=== PATIENT | female | born 1950 | race African-American/Black ===

== ENCOUNTER 2016-04-07 18:07 | Inpatient (IN) | payer OTHER ==
[~2016-04-07] VITALS: Ht 165.1 cm; Wt 49.9 kg
[2016-04-07] MEDS ORDERED: IV NORMAL SALINE 1000ML BAG 1,000 ML IV SCH (19:41)
[2016-04-07] MEDS ORDERED: methylPREDNISolone SOD SUCC PF 125 MG/2 ML VIAL. IV ONE (19:45)
[2016-04-07] MEDS ORDERED: IPRATRPIUM/ALBUTEROL 0.5/2.5MG 3 ML NEBU. NEB ONE (19:45)
[2016-04-07 20:24] LABS: BASO # 0.1 x10^3/uL (0.0-0.2); BASO % 1 % (0-3); EOS % 0 % (0-3); HEMOGLOBIN 14.9 g/dL (12.0-15.5); LYMPH # 0.8 x10^3/uL (1.0-4.8); LYMPH % 9 % (24-48); MEAN CORPUSCULAR HEMOGLOBIN 29 pg (25-35); MEAN CORPUSCULAR HGB CONC 33 g/dL (31-37); MEAN CORPUSCULAR VOLUME 89 fL (79-100); MONO % 6 % (0-9); NEUT % 85 % (31-73); PLATELET COUNT 212 x10^3/uL (140-400); RED BLOOD COUNT 5.07 x10^6/uL (3.50-5.40); RED CELL DISTRIBUTION WIDTH 13.6 % (11.5-14.5); WHITE BLOOD COUNT 9.8 x10^3/uL (4.0-11.0)
[2016-04-07 20:35] LABS: CALCIUM 9.8 mg/dL (8.5-10.1); CREATININE 0.7 mg/dL (0.6-1.0); GFR 101.6; POTASSIUM 3.6 mmol/L (3.5-5.1)
[2016-04-07 20:41] LABS: ALBUMIN 3.9 g/dL (3.4-5.0); ALBUMIN/GLOBULIN RATIO 0.8 (1.0-1.7); TOTAL BILIRUBIN 0.5 mg/dL (0.2-1.0); TOTAL PROTEIN 8.5 g/dL (6.4-8.2)
[2016-04-07 20:56] LABS: CKMB MASS < 0.5 ng/mL (0.0-3.6); CREATINE KINASE 55 U/L (26-192)
[2016-04-07 21:02] LABS: OBC FLU VALID
--- NOTE | 2016-04-07 21:08 | PHYS DOC ---
Past Medical History Past Medical History: Asthma, COPD, Hypertension Past Surgical History: No Surgical History Alcohol Use: Occasionally Drug Use: Marijuana Adult General Chief Complaint Chief Complaint: SHORTNESS OF BREATH HPI HPI Patient is a 65 year old female who presents with complaint of cough and shortness of breath. Patient symptoms have been getting worse over the past 2 days. Patient has history of COPD. Patient is not currently taking albuterol at home. Patient states that she has been having fever and chills and has had nonproductive cough. Patient also complains of body aches. Denies chest pain. Due to worsening dyspnea patient came to the emergency department for evaluation. Patient has history of COPD and hypertension. Review of Systems Review of Systems Constitutional: Fever [] Eyes: Denies change in visual acuity, redness, or eye pain [] HENT: Denies nasal congestion or sore throat [] Respiratory: Cough, shortness of breath [] Cardiovascular: Denies chest pain or edema [] GI: Denies abdominal pain, nausea, vomiting, bloody stools or diarrhea [] : Denies dysuria or hematuria [] Musculoskeletal: Denies back pain or joint pain [] Integument: Denies rash or skin lesions [] Neurologic: Denies headache, focal weakness or sensory changes [] Current Medications Current Medications Current Medications Medications (Trade) Dose Ordered Sig/Natalie Start Time Stop Time Status Last Admin Dose Admin Albuterol/ Ipratropium (Duoneb) 6 ml 1X ONCE 04/07/16 19:45 04/07/16 19:51 DC 04/07/16 20:09 6 ML Methylprednisolone Sodium Succinate (Solu-Medrol 125mg Vial) 100 mg 1X ONCE 04/07/16 19:45 04/07/16 19:51 DC 04/07/16 20:09 100 MG Sodium Chloride (Iv Sodium Chloride 0.9% 1000ml Bag) 1,000 ml @ 1,000 mls/hr Q1H 04/07/16 19:41 04/07/16 20:40 DC 04/07/16 20:09 1,000 MLS/HR Allergies Allergies Allergies Coded Allergies Type Severity Reaction Last Updated Verified Penicillins Allergy Intermediate hives 11/03/13 Yes diphenhydramine Allergy Intermediate hives 11/03/13 Yes Physical Exam Physical Exam Constitutional: Alert, febrile, appears in mild to moderate respiratory distress. [] HENT: Normocephalic, atraumatic, bilateral external ears normal, oropharynx moist, no oral exudates, nose normal. [] Eyes: PERRLA, EOMI, conjunctiva normal, no discharge. [] Neck: Normal range of motion, no tenderness, supple, no stridor. [] Cardiovascular: Tachycardia, regular rhythm, no murmur [] Lungs & Thorax: Accessory muscle usage present, prolonged expiratory phase, expiratory wheezes bilaterally, no rales [] Abdomen: Bowel sounds normal, soft, no tenderness, no masses, no pulsatile masses. [] Skin: Warm, dry, no erythema, no rash. [] Back: No tenderness, no CVA tenderness. [] Extremities: No tenderness, no cyanosis, no clubbing, ROM intact, no edema. [] Neurologic: Alert and oriented X 3, normal motor function, normal sensory function, no focal deficits noted. [] Current Patient Data Vital Signs Vital Signs Date Time Temp Pulse Resp B/P Pulse Ox O2 Delivery O2 Flow Rate FiO2 04/07/16 20:12 Room Air 04/07/16 20:09 91 04/07/16 18:56 86 20 155/100 2 04/07/16 18:07 100.1 100.1 Lab Values Laboratory Tests Test 04/07/16 20:06 04/07/16 20:12 Influenza Type A Antigen Negative (NEGATIVE) Influenza Type B Antigen Negative (NEGATIVE) White Blood Count 9.8x10^3/uL (4.0-11.0) Red Blood Count 5.07x10^6/uL (3.50-5.40) Hemoglobin 14.9g/dL (12.0-15.5) Hematocrit 45.0% (36.0-47.0) Mean Corpuscular Volume 89fL (79-100) Mean Corpuscular Hemoglobin 29pg (25-35) Mean Corpuscular Hemoglobin Concent 33g/dL (31-37) Red Cell Distribution Width 13.6% (11.5-14.5) Platelet Count 212x10^3/uL (140-400) Neutrophils (%) (Auto) 85% (31-73) H Lymphocytes (%) (Auto) 9% (24-48) L Monocytes (%) (Auto) 6% (0-9) Eosinophils (%) (Auto) 0% (0-3) Basophils (%) (Auto) 1% (0-3) Neutrophils # (Auto) 8.3x10^3uL (1.8-7.7) H Lymphocytes # (Auto) 0.8x10^3/uL (1.0-4.8) L Monocytes # (Auto) 0.6x10^3/uL (0.0-1.1) Eosinophils # (Auto) 0.0x10^3/uL (0.0-0.7) Basophils # (Auto) 0.1x10^3/uL (0.0-0.2) Sodium Level 138mmol/L (136-145) Potassium Level 3.6mmol/L (3.5-5.1) Chloride Level 99mmol/L (98-107) Carbon Dioxide Level 30mmol/L (21-32) Anion Gap 9 (6-14) Blood Urea Nitrogen 5mg/dL (7-20) L Creatinine 0.7mg/dL (0.6-1.0) Estimated GFR (Cockcroft-Gault) 101.6 BUN/Creatinine Ratio 7 (6-20) Glucose Level 111mg/dL (70-99) H Lactic Acid Level 1.2mmol/L (0.4-2.0) Calcium Level 9.8mg/dL (8.5-10.1) Total Bilirubin 0.5mg/dL (0.2-1.0) Aspartate Amino Transferase (AST) 17U/L (15-37) Alanine Aminotransferase (ALT) 17U/L (14-59) Alkaline Phosphatase 125U/L (46-116) H Creatine Kinase 55U/L (26-192) Creatine Kinase MB (Mass) < 0.5ng/mL (0.0-3.6) Creatine Kinase MB Relative Index % (0-4) Troponin I Quantitative < 0.017ng/mL (0.000-0.055) PJ-Omw-I-Type Natriuretic Peptide 205pg/mL (0-124) H Total Protein 8.5g/dL (6.4-8.2) H Albumin 3.9g/dL (3.4-5.0) Albumin/Globulin Ratio 0.8 (1.0-1.7) L Laboratory Tests 04/07/16 20:12 Laboratory Tests 04/07/16 20:12 EKG EKG Interpreted by me: Heart rate 95, sinus rhythm, normal intervals, normal axis, no acute ST/T-wave abnormalities present [] Radiology/Procedures Radiology/Procedures One view AP chest x-ray interpreted by me: Hyperinflated lung zepeda, no acute infiltrates or effusions, normal cardiac silhouette [] Course & Med Decision Making Course & Med Decision Making Pertinent Labs and Imaging studies reviewed. (See chart for details) Patient was given DuoNeb treatment and started on IV Solu-Medrol. Patient's resting oxygen saturation was 88% on room air and patient was started on oxygen per nasal cannula. Patient's flu test was negative and patient's chest x-ray does not show obvious signs of pneumonia at this time. Patient has fever which at this time is likely due to viral upper respiratory infection. The patient will need admission to the hospital for continued breathing treatments and IV steroids as patient continues to be in respiratory distress and hypoxic at rest. I spoke with Dr. Dubois who accepted care patient in hospital. Dragon Disclaimer Dragon Disclaimer This electronic medical record was generated, in whole or in part, using a voice recognition dictation system. Departure Departure Impression: Primary Impression: COPD with acute exacerbation Additional Impressions: Hypoxia Fever Disposition: ADMITTED INPATIENT Admitting Physician: Tala Dubois Condition: STABLE Referrals: MASON BHAKTA MD (PCP) Problem Qualifiers Additional Impressions: Fever Fever type: unspecified Qualified Code: R50.9 - Fever, unspecified JUDITH MONTANO MD Apr 07, 2016 21:08
[2016-04-08] VITALS (7 sets, daily range): BP systolic 105–157; BP diastolic 73–113
[2016-04-08] MEDS ORDERED: LEVOFLOXACIN PER PHARMACY MC PRN (00:15)
--- NOTE | 2016-04-08 00:53 | HP ---
ADMIT DATE: 04/07/2016 CHIEF COMPLAINT: Shortness of breath. HISTORY OF PRESENT ILLNESS: The patient is a pleasant middle-aged female who has known COPD. She presents with shortness of breath and weakness. I have discussed the case with the ER physician. It appears she has COPD exacerbation. She does continue to smoke. I am going to admit the patient and consult Pulmonary Medicine. PAST MEDICAL HISTORY: Continued tobacco abuse, COPD, asthma, hypertension, noncompliance, marijuana use. ALLERGIES: PENICILLIN, DIPHENHYDRAMINE. FAMILY HISTORY: Coronary artery disease. SOCIAL HISTORY: She smokes. No drinking or drugs. MEDICATIONS: Reviewed, please refer to [facility]. REVIEW OF SYSTEMS: GENERAL: No history of weight change, weakness or fevers. SKIN: No bruising, hair changes or rashes. EYES: No blurred, double or loss of vision. NOSE AND THROAT: No history of nosebleeds, hoarseness or sore throat. HEART: No history of palpitations, chest pain or shortness of breath on exertion. LUNGS: She complains of shortness of breath. GASTROINTESTINAL: Denies changes in appetite, nausea, vomiting, diarrhea or constipation. GENITOURINARY: No history of frequency, urgency, hesitancy or nocturia. NEUROLOGIC: Denies history of numbness, tingling, tremor or weakness. PSYCHIATRIC: No history of panic, anxiety or depression. ENDOCRINE: No history of heat or cold intolerance, polyuria or polydipsia. EXTREMITIES: Denies muscle weakness, joint pain, pain on walking or stiffness. PHYSICAL EXAMINATION: VITAL SIGNS: Stable. GENERAL: She is alert, cooperative. HEART: Normal S1, S2. LUNGS: Diminished with coarse crackles. ABDOMEN: Soft, positive bowel sounds. EXTREMITIES: No edema. SKIN: No rashes. PSYCHIATRIC: She is anxious. VASCULAR: Good capillary refill. ENDOCRINE: No thyromegaly. LYMPHATICS: No cervical nodes. HEMATOPOIETIC: No bruising. ASSESSMENT AND PLAN: Chronic obstructive pulmonary disease exacerbation. We will admit the patient, start on IV steroids, IV Rocephin, DuoNebs, oxygen, and consult Pulmonary Medicine. Continue home medicines, cardiac monitoring. SAV WHATLEY DO DR: GERTRUDE/yumiko JOB#: [id number] / [id number]
--- NOTE | 2016-04-08 00:58 | ACF ---
Admission Forms Criteria COPD Clinical Indications for Admission to Inpatient Care (Place 'X' for any and all applicable criteria): Admission is indicated for ANY ONE of the following (1)(2)(3): [X]I. Acute exacerbation by high-risk comorbidity (e.g., pneumonia, dysrhythmia, heart failure, pleural effusion, pneumothorax) or severe underlying COPD (e.g., steroid dependent) [X]II. Inpatient admission required rather than observation care (see Chronic Obstructive Pulmonary Disease: Observation Care) because of ANY ONE of the following: [ ]a) New or pre-existing signs or symptoms of COPD (eg, dyspnea or Tachypnea at rest or with minimal activity) that persist despite outpatient and observation care treatment [X]b) New-onset hypoxemia (room air SaO2 less than 90%, PO2 less than 60 mm Hg (8.0 kPa)) that persists despite outpatient and observation care treatment [ ]c) Worsening of pre-existing hypoxemia (eg, new or increased requirement for supplemental oxygen to maintain oxygenation at baseline level) that persists despite outpatient and observation care treatment, with oxygen treatment needs performable only in acute inpatient setting [ ]d) Hypercarbia (PCO2 greater than 40 mm Hg (5.3 kPa))-induced respiratory acidosis (pH less than 7.35) that persists despite outpatient and observation care treatment [ ]e) Supplemental oxygen or respiratory treatments for over 24 hours that are performable only in acute inpatient setting [ ]f) Chest tube placement with active evacuation (e.g., suction, drainage) (5) [ ]g) Other condition, treatment or monitoring requiring inpatient admission [ ]III. Planned invasive surgical or diagnostic procedures requiring acute- care hospitalization [ ]IV. Acute respiratory failure (e.g., uncompensated hypercarbia, severe hypoxemia) [ ]V. Severe comorbid condition (e.g., severe steroid myopathy, acute vertebral fracture) that has acutely worsened pulmonary function [ ]. Confusion state, lethargy, obtundation, stupor or coma Extended stay beyond goal length of stay may be needed for (31)(32): [ ]a ) Respiratory Failure. [ ]b) Severe or persisting hypoxemia or hypercarbia [ ]c) Severe or persistent dyspnea [ ]d) Comorbidities (e.g. chronic heart failure, atrial fibrillation with rapid response, pneumonia) [ ]e) Malnutrition The original [facility] content created by [facility] has been revised. The portions of the content which have been revised are identified through the use of italic text or in bold, and [facility] has neither reviewed nor approved the modified material. All other unmodified content is copyright [facility]. Please see references footnoted in the original [facility] edition 2016 Admission Criteria Met?: Yes RENNY SHANE Apr 08, 2016 00:58
[2016-04-08 02:05] LABS: BILIRUBIN,URINE NEGATIVE (NEG); GLUCOSE,URINE NEGATIVE (NEG); NITRITE,URINE NEGATIVE (NEG); PROTEIN,URINE NEGATIVE (NEG-TRACE)
[2016-04-08 02:12] LABS: BACTERIA,URINE 0 /HPF (0-FEW); RBC,URINE 0 /HPF (0-2); SQUAMOUS EPITHELIAL CELL,UR FEW /LPF; WBC,URINE OCC /HPF (0-4)
--- NOTE | 2016-04-08 06:41 | EKG ---
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
[2016-04-08] MEDS: IPRATRPIUM/ALBUTEROL 0.5/2.5MG 3 ML NEBU. NEB SCH ×3 (07:14→19:28)
--- NOTE | 2016-04-08 08:27 | RAD ---
Indication shortness of breath. History of COPD. A single view of the chest was obtained. Comparison is made to an examination 01/05/2015. Background changes compatible with emphysema and/or fibrosis are noted. Tortuous thoracic aorta is noted. A nipple shadow is noted at the left lung base similar to the previous exam. There is no consolidated pneumonia. Overall a significant change in the appearance of the chest compared to the prior study is not seen. IMPRESSION: Chronic changes. No acute finding or significant change
[2016-04-08] MEDS: methylPREDNISolone SOD SUCC PF 40 MG/ML VIAL. IV SCH ×3 (09:16→21:10)
[2016-04-08] MEDS ORDERED: hydrALAZINE 20 MG/ML VIAL. IVP PRN (09:30)
[2016-04-08] MEDS ORDERED: ONDANSETRON PF 4 MG/2 ML VIAL. IV PRN (09:30)
[2016-04-08] MEDS ORDERED: ALBUTEROL SULFATE 2.5 MG/3 ML NEBU. NEB PRN (09:30)
[2016-04-08] MEDS: ACETAMINOPHEN 325 MG TABLET. PO PRN ×2 (11:49→21:15)
[2016-04-08] MEDS: HYDROCODONE/APAP 5/325MG TABLET. PO PRN ×2 (11:50→21:14)
--- NOTE | 2016-04-08 15:26 | PDOC ---
Provider Note Provider Note dictated [facility] Abnormal CXR ct chest/echo EVERTON CUNNINGHAM MD Apr 08, 2016 15:26
--- NOTE | 2016-04-08 16:27 | RAD ---
Indication difficulty breathing. Assess for potential pulmonary fibrosis. Noncontrast imaging through the chest was performed. Note is made of a previous examination 11/03/2013. There is a lucency in the right lobe of the liver. This is likely incidental. It is similar to the previous exam. It is unchanged relative to a study 05/12/2011 and probably reflects a hemangioma. A definite acute or significant finding in the upper abdomen is not seen. The ascending thoracic aorta is at the upper limits of normal in size, 4 cm. Significant hilar or mediastinal adenopathy is not seen. There is some minimal scarring at the lung apices similar to the prior study. Underlying emphysematous changes are noted. An acute parenchymal infiltrate in either lung is not seen. There is no dominant soft tissue mass. IMPRESSION: Underlying emphysematous changes. No acute finding apparent in the chest PQRS Compliance Statement: One or more of the following individualized dose reduction techniques were utilized for this examination: 1. Automated exposure control 2. Adjustment of the mA and/or kV according to patient size 3. Use of iterative reconstruction technique
--- NOTE | 2016-04-08 16:33 | CONS ---
DATE OF CONSULTATION: ATTENDING PHYSICIAN: Tala Dubois D.O. REASON FOR CONSULTATION: Dyspnea. HISTORY OF PRESENT ILLNESS: This is a 65-year-old female who has been a smoker since her teenage years and still smokes cigarettes. She presented to the hospital with complaint of shortness of breath. The patient states she has a cough with yellow, green sputum production. No fever, no chills, no chest pains. The patient states she does not eat well and has not gained weight. No headaches. No nausea, vomiting or diarrhea. I have reviewed the patient's chest x-ray, there appears to be slightly prominent interstitial markings and there is a nipple shadow in the left lower lobe. I have been asked to see her for further evaluation. PAST MEDICAL HISTORY: Significant for COPD, continued tobaccoism, marijuana use, noncompliance, hypertension. ALLERGIES: PENICILLIN, DIPHENHYDRAMINE. FAMILY HISTORY: Coronary artery disease. SOCIAL HISTORY: Has been a smoker since teenage years. MEDICATIONS: Reviewed, as listed in the MRAD. REVIEW OF SYSTEMS: Twelve-point systems obtained, pertinent positives discussed in my history of present illness, otherwise noncontributory. All systems that were negative were reviewed as well. PHYSICAL EXAMINATION: VITAL SIGNS: T-max 100.8, blood pressure is 116/78, pulse ox 96% on 2 liters. NECK: Supple. LUNGS: With crackles at the bases. CARDIOVASCULAR: Regular rate and rhythm. ABDOMEN: Soft. EXTREMITIES: With no pitting edema. LABORATORY DATA: Influenza screen is negative. Labs are reviewed. White cell count 9.8 and platelets 212. IMPRESSION: 1. Dyspnea with acute hypoxic respiratory failure secondary to acute exacerbation of chronic obstructive pulmonary disease and possible viral pneumonitis. 2. Abnormal chest x-ray with slightly prominent interstitial markings. We will obtain noncontrast CT chest for further evaluation. We will also obtain echo to rule out any LV dysfunction. 3. Ongoing tobaccoism. RECOMMENDATIONS: 1. Continue present oxygen. 2. Bronchodilators. 3. Levaquin. 4. IV steroids. 5. CT chest without contrast. 6. Obtain echocardiogram. EVERTON CUNNINGHAM MD DR: AMIE/yumiko JOB#: [id number] / [id number]
--- NOTE | 2016-04-08 16:40 | PDOC ---
PROGRESS NOTES Chief Complaint Chief Complaint cc: sob COPD exacerbation Plan periodic nebulization ct Chest pending Levaquin iv solumedrol PT/OT pulmonology following History of Present Illness History of Present Illness no fever no chills. Vitals Vitals Vital Signs Date Time Temp Pulse Resp B/P Pulse Ox O2 Delivery O2 Flow Rate FiO2 04/08/16 15:13 Nasal Cannula 2.0 04/08/16 15:00 98.4 81 18 116/78 96 98.4 Physical Exam General: Alert, Oriented X3 Heart: Normal S1, Normal S2 Lungs: Wheezing, Other Abdomen: Normal bowel sounds Extremities: No clubbing, No cyanosis Labs LABS Laboratory Tests Test 04/07/16 20:06 04/07/16 20:12 04/08/16 01:55 Influenza Type A Antigen Negative (NEGATIVE) Influenza Type B Antigen Negative (NEGATIVE) White Blood Count 9.8x10^3/uL (4.0-11.0) Red Blood Count 5.07x10^6/uL (3.50-5.40) Hemoglobin 14.9g/dL (12.0-15.5) Hematocrit 45.0% (36.0-47.0) Mean Corpuscular Volume 89fL (79-100) Mean Corpuscular Hemoglobin 29pg (25-35) Mean Corpuscular Hemoglobin Concent 33g/dL (31-37) Red Cell Distribution Width 13.6% (11.5-14.5) Platelet Count 212x10^3/uL (140-400) Neutrophils (%) (Auto) 85% (31-73) Lymphocytes (%) (Auto) 9% (24-48) Monocytes (%) (Auto) 6% (0-9) Eosinophils (%) (Auto) 0% (0-3) Basophils (%) (Auto) 1% (0-3) Neutrophils # (Auto) 8.3x10^3uL (1.8-7.7) Lymphocytes # (Auto) 0.8x10^3/uL (1.0-4.8) Monocytes # (Auto) 0.6x10^3/uL (0.0-1.1) Eosinophils # (Auto) 0.0x10^3/uL (0.0-0.7) Basophils # (Auto) 0.1x10^3/uL (0.0-0.2) Sodium Level 138mmol/L (136-145) Potassium Level 3.6mmol/L (3.5-5.1) Chloride Level 99mmol/L (98-107) Carbon Dioxide Level 30mmol/L (21-32) Anion Gap 9 (6-14) Blood Urea Nitrogen 5mg/dL (7-20) Creatinine 0.7mg/dL (0.6-1.0) Estimated GFR (Cockcroft-Gault) 101.6 BUN/Creatinine Ratio 7 (6-20) Glucose Level 111mg/dL (70-99) Lactic Acid Level 1.2mmol/L (0.4-2.0) Calcium Level 9.8mg/dL (8.5-10.1) Total Bilirubin 0.5mg/dL (0.2-1.0) Aspartate Amino Transf (AST/SGOT) 17U/L (15-37) Alanine Aminotransferase (ALT/SGPT) 17U/L (14-59) Alkaline Phosphatase 125U/L (46-116) Creatine Kinase 55U/L (26-192) Creatine Kinase MB (Mass) < 0.5ng/mL (0.0-3.6) Creatine Kinase MB Relative Index % (0-4) Troponin I Quantitative < 0.017ng/mL (0.000-0.055) HJ-Wmf-N-Type Natriuretic Peptide 205pg/mL (0-124) Total Protein 8.5g/dL (6.4-8.2) Albumin 3.9g/dL (3.4-5.0) Albumin/Globulin Ratio 0.8 (1.0-1.7) Urine Collection Type Unknown Urine Color Yellow Urine Clarity Cloudy Urine pH 6.0 Urine Specific [place] 1.010 Urine Protein Negativemg/dL (NEG-TRACE) Urine Glucose (UA) Negativemg/dL (NEG) Urine Ketones (Stick) Negativemg/dL (NEG) Urine Blood Negative (NEG) Urine Nitrite Negative (NEG) Urine Bilirubin Negative (NEG) Urine Urobilinogen Dipstick 1.0mg/dL (0.2 mg/dL) Urine Leukocyte Esterase Negative (NEG) Urine RBC 0/HPF (0-2) Urine WBC Occ/HPF (0-4) Urine Squamous Epithelial Cells Few/LPF Urine Bacteria 0/HPF (0-FEW) Urine Mucus Mod/LPF Assessment and Plan Assessmemt and Plan Problems Medical Problems: (1) COPD with acute exacerbation Status: Acute (2) Fever Status: Acute (3) Hypoxia Status: Acute Problems: Comment Review of Relevant I have reviewed the following items lexi (where applicable) has been applied. Labs Laboratory Tests Test 04/07/16 20:06 04/07/16 20:12 04/08/16 01:55 Influenza Type A Antigen Negative (NEGATIVE) Influenza Type B Antigen Negative (NEGATIVE) White Blood Count 9.8x10^3/uL (4.0-11.0) Red Blood Count 5.07x10^6/uL (3.50-5.40) Hemoglobin 14.9g/dL (12.0-15.5) Hematocrit 45.0% (36.0-47.0) Mean Corpuscular Volume 89fL (79-100) Mean Corpuscular Hemoglobin 29pg (25-35) Mean Corpuscular Hemoglobin Concent 33g/dL (31-37) Red Cell Distribution Width 13.6% (11.5-14.5) Platelet Count 212x10^3/uL (140-400) Neutrophils (%) (Auto) 85% (31-73) Lymphocytes (%) (Auto) 9% (24-48) Monocytes (%) (Auto) 6% (0-9) Eosinophils (%) (Auto) 0% (0-3) Basophils (%) (Auto) 1% (0-3) Neutrophils # (Auto) 8.3x10^3uL (1.8-7.7) Lymphocytes # (Auto) 0.8x10^3/uL (1.0-4.8) Monocytes # (Auto) 0.6x10^3/uL (0.0-1.1) Eosinophils # (Auto) 0.0x10^3/uL (0.0-0.7) Basophils # (Auto) 0.1x10^3/uL (0.0-0.2) Sodium Level 138mmol/L (136-145) Potassium Level 3.6mmol/L (3.5-5.1) Chloride Level 99mmol/L (98-107) Carbon Dioxide Level 30mmol/L (21-32) Anion Gap 9 (6-14) Blood Urea Nitrogen 5mg/dL (7-20) Creatinine 0.7mg/dL (0.6-1.0) Estimated GFR (Cockcroft-Gault) 101.6 BUN/Creatinine Ratio 7 (6-20) Glucose Level 111mg/dL (70-99) Lactic Acid Level 1.2mmol/L (0.4-2.0) Calcium Level 9.8mg/dL (8.5-10.1) Total Bilirubin 0.5mg/dL (0.2-1.0) Aspartate Amino Transf (AST/SGOT) 17U/L (15-37) Alanine Aminotransferase (ALT/SGPT) 17U/L (14-59) Alkaline Phosphatase 125U/L (46-116) Creatine Kinase 55U/L (26-192) Creatine Kinase MB (Mass) < 0.5ng/mL (0.0-3.6) Creatine Kinase MB Relative Index % (0-4) Troponin I Quantitative < 0.017ng/mL (0.000-0.055) EQ-Qek-A-Type Natriuretic Peptide 205pg/mL (0-124) Total Protein 8.5g/dL (6.4-8.2) Albumin 3.9g/dL (3.4-5.0) Albumin/Globulin Ratio 0.8 (1.0-1.7) Urine Collection Type Unknown Urine Color Yellow Urine Clarity Cloudy Urine pH 6.0 Urine Specific [place] 1.010 Urine Protein Negativemg/dL (NEG-TRACE) Urine Glucose (UA) Negativemg/dL (NEG) Urine Ketones (Stick) Negativemg/dL (NEG) Urine Blood Negative (NEG) Urine Nitrite Negative (NEG) Urine Bilirubin Negative (NEG) Urine Urobilinogen Dipstick 1.0mg/dL (0.2 mg/dL) Urine Leukocyte Esterase Negative (NEG) Urine RBC 0/HPF (0-2) Urine WBC Occ/HPF (0-4) Urine Squamous Epithelial Cells Few/LPF Urine Bacteria 0/HPF (0-FEW) Urine Mucus Mod/LPF Laboratory Tests Test 04/07/16 20:06 04/07/16 20:12 04/08/16 01:55 Influenza Type A Antigen Negative (NEGATIVE) Influenza Type B Antigen Negative (NEGATIVE) White Blood Count 9.8x10^3/uL (4.0-11.0) Red Blood Count 5.07x10^6/uL (3.50-5.40) Hemoglobin 14.9g/dL (12.0-15.5) Hematocrit 45.0% (36.0-47.0) Mean Corpuscular Volume 89fL (79-100) Mean Corpuscular Hemoglobin 29pg (25-35) Mean Corpuscular Hemoglobin Concent 33g/dL (31-37) Red Cell Distribution Width 13.6% (11.5-14.5) Platelet Count 212x10^3/uL (140-400) Neutrophils (%) (Auto) 85% (31-73) Lymphocytes (%) (Auto) 9% (24-48) Monocytes (%) (Auto) 6% (0-9) Eosinophils (%) (Auto) 0% (0-3) Basophils (%) (Auto) 1% (0-3) Neutrophils # (Auto) 8.3x10^3uL (1.8-7.7) Lymphocytes # (Auto) 0.8x10^3/uL (1.0-4.8) Monocytes # (Auto) 0.6x10^3/uL (0.0-1.1) Eosinophils # (Auto) 0.0x10^3/uL (0.0-0.7) Basophils # (Auto) 0.1x10^3/uL (0.0-0.2) Sodium Level 138mmol/L (136-145) Potassium Level 3.6mmol/L (3.5-5.1) Chloride Level 99mmol/L (98-107) Carbon Dioxide Level 30mmol/L (21-32) Anion Gap 9 (6-14) Blood Urea Nitrogen 5mg/dL (7-20) Creatinine 0.7mg/dL (0.6-1.0) Estimated GFR (Cockcroft-Gault) 101.6 BUN/Creatinine Ratio 7 (6-20) Glucose Level 111mg/dL (70-99) Lactic Acid Level 1.2mmol/L (0.4-2.0) Calcium Level 9.8mg/dL (8.5-10.1) Total Bilirubin 0.5mg/dL (0.2-1.0) Aspartate Amino Transf (AST/SGOT) 17U/L (15-37) Alanine Aminotransferase (ALT/SGPT) 17U/L (14-59) Alkaline Phosphatase 125U/L (46-116) Creatine Kinase 55U/L (26-192) Creatine Kinase MB (Mass) < 0.5ng/mL (0.0-3.6) Creatine Kinase MB Relative Index % (0-4) Troponin I Quantitative < 0.017ng/mL (0.000-0.055) SP-Suc-L-Type Natriuretic Peptide 205pg/mL (0-124) Total Protein 8.5g/dL (6.4-8.2) Albumin 3.9g/dL (3.4-5.0) Albumin/Globulin Ratio 0.8 (1.0-1.7) Urine Collection Type Unknown Urine Color Yellow Urine Clarity Cloudy Urine pH 6.0 Urine Specific [place] 1.010 Urine Protein Negativemg/dL (NEG-TRACE) Urine Glucose (UA) Negativemg/dL (NEG) Urine Ketones (Stick) Negativemg/dL (NEG) Urine Blood Negative (NEG) Urine Nitrite Negative (NEG) Urine Bilirubin Negative (NEG) Urine Urobilinogen Dipstick 1.0mg/dL (0.2 mg/dL) Urine Leukocyte Esterase Negative (NEG) Urine RBC 0/HPF (0-2) Urine WBC Occ/HPF (0-4) Urine Squamous Epithelial Cells Few/LPF Urine Bacteria 0/HPF (0-FEW) Urine Mucus Mod/LPF Medications Current Medications Sodium Chloride (Iv Sodium Chloride 0.9% 1000ml Bag) 1,000 ml @ 1,000 mls/hr Q1H IV Last administered on 04/07/16 20:09; Start 04/07/16 at 19:41; Stop at 20:40; Status DC Albuterol/ Ipratropium (Duoneb) 6 ml 1X ONCE NEB Last administered on 20:09; Start 04/07/16 at 19:45; Stop 04/07/16 at 19:51; Status DC Methylprednisolone Sodium Succinate (Solu-Medrol 125mg Vial) 100 mg 1X ONCE IV Last administered on 04/07/16 20:09; Start 04/07/16 at 19:45; Stop 04/07/16 at 19:51; Status DC Levofloxacin/ Dextrose (Levaquin Per Pharmacy) 1 each PRN DAILY PRN MC SEE COMMENTS; Start 04/08/16 at 00:15 Albuterol/ Ipratropium (Duoneb) 3 ml RTQID NEB Last administered on 04/08/16 15 :13; Start 04/08/16 at 08:00 Methylprednisolone Sodium Succinate 30 mg 30 mg TID IV Last administered on 04/08 14:58; Start 04/08/16 at 09:00 Levofloxacin/ Dextrose 100 ml @ 100 mls/hr 1X ONCE IV Last administered on 04:25; Start 04/08/16 at 00:30; Stop 04/08/16 at 01:29; Status DC Levofloxacin/ Dextrose (LEVAQUIN 250mg PREMIX) 50 ml @ 50 mls/hr Q24H IV ; Start 04/08/16 at 22:00 Acetaminophen (Tylenol) 325 mg PRN Q6HRS PRN PO MILD PAIN / TEMP Last administered on 04/08/16 11:49; Start 04/08/16 at 09:30 Acetaminophen/ Hydrocodone Bitart (Lortab 5/325) 1 tab PRN Q6HRS PRN PO MODERATE TO SEVERE PAIN Last administered on 04/08/16 11:50; Start 04/08/16 at 09 :30 Hydralazine HCl (Apresoline) 10 mg PRN Q4HRS PRN IVP ELEVATED BP, SEE COMMENTS ; Start 04/08/16 at 09:30 Ondansetron HCl (Zofran) 4 mg PRN Q8HRS PRN IV NAUSEA/VOMITING; Start 04/08/16 at 09:30 Albuterol Sulfate (Ventolin Neb Soln) 2.5 mg PRN Q4HRS PRN NEB SHORTNESS OF BREATH; Start 04/08/16 at 09:30 Vitals/I & O Vital Sign - Last 24 Hours 04/07/16 04/07/16 04/07/16 04/07/16 18:07 18:26 18:56 19:12 Temp 100.1 100.1 Pulse 103 86 86 79 Resp 30 28 20 B/P 157/100 155/97 155/100 163/100 Pulse Ox 90 98 96 O2 Delivery Room Air Nasal Cannula Nasal Cannula O2 Flow Rate 2 2 2/08/1604/07/16 04/07/16 04/07/16 20:09 20:12 21:12 21:42 Pulse 106 82 Resp 20 31 B/P 169/103 161/93 Pulse Ox 91 93 99 O2 Delivery Room Air Room Air Nasal Cannula Nasal Cannula O2 Flow Rate 2 2 04/07/16 04/07/16 04/07/16 04/07/16 21:47 22:12 23:12 23:42 Pulse 94 84 76 80 Resp 24 20 20 20 B/P 142/92 143/92 158/96 146/95 Pulse Ox 98 94 94 94 O2 Delivery Nasal Cannula Nasal Cannula Nasal Cannula Nasal Cannula O2 Flow Rate 2 2 2 2 04/08/16 04/08/16 04/08/16 04/08/16 00:42 01:42 02:12 03:12 Pulse 88 110 88 86 Resp 18 18 18 18 B/P 138/91 137/96 137/83 157/94 Pulse Ox 94 94 94 94 O2 Delivery Nasal Cannula Nasal Cannula Nasal Cannula Nasal Cannula O2 Flow Rate 2 2 2 2 04/08/16 04/08/16 04/08/16 04/08/16 04:05 04:55 07:00 07:10 Temp 99.7 100.0 99.7 100.0 Pulse 100 92 Resp 22 20 B/P 157/113 134/83 Pulse Ox 92 100 98 O2 Delivery Nasal Cannula Nasal Cannula Nasal Cannula Room Air O2 Flow Rate 2.0 2.0 2.0 04/08/16 04/08/16 04/08/16 04/08/16 07:11 07:30 09:05 11:00 Pulse Ox 93 O2 Delivery Nasal Cannula Nasal Cannula Nasal Cannula O2 Flow Rate 2.0 2.0 2.0 2.0 04/08/16 04/08/16 04/08/16 04/08/16 11:00 11:35 11:50 13:00 Temp 99.8 100.8 99.8 100.8 Pulse 89 101 Resp 18 28 B/P 129/79 127/84 Pulse Ox 99 86 O2 Delivery Nasal Cannula Nasal Cannula Nasal Cannula Nasal Cannula O2 Flow Rate 2.0 2.0 2.0 2.0 04/08/16 04/08/16 04/08/16 13:40 15:00 15:13 Temp 98.4 98.4 Pulse 81 Resp 18 B/P 116/78 Pulse Ox 98 96 O2 Delivery Nasal Cannula Nasal Cannula O2 Flow Rate 2.0 2.0 2.0 Intake and Output 04/07/16 04/07/16 04/08/16 15:00 23:00 07:00 Intake Total 1100 ml Balance 1100 ml DONA KING MD Apr 08, 2016 16:40
--- NOTE | 2016-04-08 19:00 | CARD ---
APPROVED REPORT EXAM: Two-dimensional and M-mode echocardiogram with Doppler and color Doppler. INDICATION COPD 2D DIMENSIONS RVDd2.3 (2.9-3.5cm)Left Atrium(2D)2.0 (1.6-4.0cm) IVSd0.8 (0.7-1.1cm)Aortic Root(2D)3.0 (2.0-3.7cm) LVDd3.5 (3.9-5.9cm)LVOT Diameter2.0 (1.8-2.4cm) PWd0.9 (0.7-1.1cm)LVDs2.1 (2.5-4.0cm) FS (%) 39.2 %SV36.0 ml LVEF(%)70.0 (>50%) Aortic Valve AoV Peak Blayne.182.8cm/sAoV VTI30.1cm AO Peak GR.13.4mmHgLVOT Peak Blayne.143.9cm/s AO Mean GR.7mmHgAVA (VMAX)2.45cm2 Mitral Valve MV E Mxsrqoyq69.3cm/sMV E Peak Gr.2mmHg MV DECEL [id number] A Qvxpupss15.3cm/s MV E Mean Gr.1mmHgE/A Ratio0.8 MV A [id number] Pulmonary Valve PV Peak Olksmura555.5cm/s Tricuspid Valve TR P. [id number] [id number] TR Peak Gr.[id number] Pulmonary Vein S1 Anbtcpsy80.1cm/sD2 Yhpoepdt64.0cm/s PVa [id number] LEFT VENTRICLE The left ventricle is normal size. There is normal left ventricular wall thickness. The left ventricu lar systolic function is normal and the ejection fraction is within normal range. The Ejection Fracti on is 70%. There is normal LV segmental wall motion. Transmitral Doppler flow pattern is Grade I-abno rmal relaxation pattern. RIGHT VENTRICLE The right ventricle is mildly dilated There is normal right ventricular wall thickness. The right tigist tricular systolic function is normal. ATRIA The left atrium size is normal. The right atrium size is normal. The interatrial septum is intact wit h no evidence for an atrial septal defect or patent foramen ovale as noted on 2-D or Doppler imaging. AORTIC VALVE The aortic valve is normal in structure and function. Doppler and Color Flow revealed no significant aortic regurgitation. There is no significant aortic valvular stenosis. MITRAL VALVE The mitral valve is normal in structure and function. There is no evidence of mitral valve prolapse. There is no mitral valve stenosis. Doppler and Color Flow revealed no mitral valve regurgitation note d. TRICUSPID VALVE Doppler and Color Flow revealed mild tricuspid regurgitation. The pulmonary artery systolic pressure is estimated at 31 mmHg. PULMONIC VALVE The pulmonary valve is normal in structure and function. Doppler and Color Flow revealed no pulmonic valvular regurgitation. GREAT VESSELS The aortic root is normal in size. The ascending aorta is normal in size. The pulmonary artery is nor mal. The IVC is normal in size and collapses >50% with inspiration. PERICARDIAL EFFUSION There is no evidence of significant pericardial effusion. Critical Notification Critical Value: No <Conclusion> The left ventricular systolic function is normal and the ejection fraction is within normal range. The Ejection Fraction is 70%. Transmitral Doppler flow pattern is Grade I-abnormal relaxation pattern. The right ventricle is mildly dilated The left atrium size is normal. The right atrium size is normal. The aortic valve is normal in structure and function. The mitral valve is normal in structure and function. Doppler and Color Flow revealed mild tricuspid regurgitation. The pulmonary artery systolic pressure is estimated at 31 mmHg. The pulmonary valve is normal in structure and function. There is no evidence of significant pericardial effusion.
[2016-04-09 03:00] VITALS: BP 108/73
[2016-04-09 05:35] LABS: BASO % 0 % (0-3); EOS % 0 % (0-3); HEMATOCRIT 37.1 % (36.0-47.0); HEMOGLOBIN 12.3 g/dL (12.0-15.5); LYMPH # 0.6 x10^3/uL (1.0-4.8); LYMPH % 5 % (24-48); MEAN CORPUSCULAR HEMOGLOBIN 29 pg (25-35); MEAN CORPUSCULAR HGB CONC 33 g/dL (31-37); MEAN CORPUSCULAR VOLUME 89 fL (79-100); MONO % 2 % (0-9); NEUT % 93 % (31-73); PLATELET COUNT 180 x10^3/uL (140-400); RED BLOOD COUNT 4.18 x10^6/uL (3.50-5.40); RED CELL DISTRIBUTION WIDTH 13.6 % (11.5-14.5); WHITE BLOOD COUNT 12.5 x10^3/uL (4.0-11.0)
[2016-04-09 05:55] LABS: CALCIUM 9.2 mg/dL (8.5-10.1); CREATININE 0.7 mg/dL (0.6-1.0); GFR 101.6; POTASSIUM 3.4 mmol/L (3.5-5.1)
[2016-04-09 07:00] VITALS: BP 107/70
[2016-04-09] MEDS: IPRATRPIUM/ALBUTEROL 0.5/2.5MG 3 ML NEBU. NEB SCH ×4 (07:28→20:25)
[2016-04-09 07:56] LABS: PLT ESTIMATE ADEQUATE (ADEQUATE); TARGET CELLS PRESENT
[2016-04-09] MEDS: methylPREDNISolone SOD SUCC PF 40 MG/ML VIAL. IV SCH ×3 (08:26→21:23)
[2016-04-09 10:49] VITALS: BP 115/75
--- NOTE | 2016-04-09 10:55 | PDOC ---
PROGRESS NOTES Chief Complaint Chief Complaint cc: sob COPD exacerbation Dizziness and Ear pain rigth Plan periodic nebulization Meclizine PT Echo LVEF 70% ct Chest pending Levaquin iv solumedrol pulmonology following History of Present Illness History of Present Illness no fever no chills. Vitals Vitals Vital Signs Date Time Temp Pulse Resp B/P Pulse Ox O2 Delivery O2 Flow Rate FiO2 04/09/16 10:49 97.9 83 18 115/75 93 Nasal Cannula 1.0 97.9 Physical Exam General: Alert, Oriented X3 Heart: Normal S1, Normal S2 Lungs: Wheezing, Other Abdomen: Normal bowel sounds Extremities: No clubbing, No cyanosis Labs LABS Laboratory Tests Test 04/09/16 04:55 White Blood Count 12.5x10^3/uL (4.0-11.0) Red Blood Count 4.18x10^6/uL (3.50-5.40) Hemoglobin 12.3g/dL (12.0-15.5) Hematocrit 37.1% (36.0-47.0) Mean Corpuscular Volume 89fL (79-100) Mean Corpuscular Hemoglobin 29pg (25-35) Mean Corpuscular Hemoglobin Concent 33g/dL (31-37) Red Cell Distribution Width 13.6% (11.5-14.5) Platelet Count 180x10^3/uL (140-400) Neutrophils (%) (Auto) 93% (31-73) Lymphocytes (%) (Auto) 5% (24-48) Monocytes (%) (Auto) 2% (0-9) Eosinophils (%) (Auto) 0% (0-3) Basophils (%) (Auto) 0% (0-3) Neutrophils # (Auto) 11.6x10^3uL (1.8-7.7) Lymphocytes # (Auto) 0.6x10^3/uL (1.0-4.8) Monocytes # (Auto) 0.3x10^3/uL (0.0-1.1) Eosinophils # (Auto) 0.0x10^3/uL (0.0-0.7) Basophils # (Auto) 0.0x10^3/uL (0.0-0.2) Segmented Neutrophils % 88% (35-66) Band Neutrophils % 5% (0-9) Lymphocytes % 5% (24-48) Atypical Lymphocytes % (Manual) 1% (0-0) Monocytes % 1% (0-10) Platelet Estimate Adequate (ADEQUATE) Target Cells Present Sodium Level 137mmol/L (136-145) Potassium Level 3.4mmol/L (3.5-5.1) Chloride Level 101mmol/L (98-107) Carbon Dioxide Level 33mmol/L (21-32) Anion Gap 3 (6-14) Blood Urea Nitrogen 14mg/dL (7-20) Creatinine 0.7mg/dL (0.6-1.0) Estimated GFR (Cockcroft-Gault) 101.6 Glucose Level 253mg/dL (70-99) Calcium Level 9.2mg/dL (8.5-10.1) Assessment and Plan Assessmemt and Plan Problems Medical Problems: (1) COPD with acute exacerbation Status: Acute (2) Fever Status: Acute (3) Hypoxia Status: Acute Problems: Comment Review of Relevant I have reviewed the following items lexi (where applicable) has been applied. Labs Laboratory Tests Test 04/07/16 20:06 04/07/16 20:12 04/08/16 01:55 04/09/16 04:55 Influenza Type A Antigen Negative (NEGATIVE) Influenza Type B Antigen Negative (NEGATIVE) White Blood Count 9.8x10^3/uL (4.0-11.0) 12.5x10^3/uL (4.0-11.0) Red Blood Count 5.07x10^6/uL (3.50-5.40) 4.18x10^6/uL (3.50-5.40) Hemoglobin 14.9g/dL (12.0-15.5) 12.3g/dL (12.0-15.5) Hematocrit 45.0% (36.0-47.0) 37.1% (36.0-47.0) Mean Corpuscular Volume 89fL (79-100) 89fL (79-100) Mean Corpuscular Hemoglobin 29pg (25-35) 29pg (25-35) Mean Corpuscular Hemoglobin Concent 33g/dL (31-37) 33g/dL (31-37) Red Cell Distribution Width 13.6% (11.5-14.5) 13.6% (11.5-14.5) Platelet Count 212x10^3/uL (140-400) 180x10^3/uL (140-400) Neutrophils (%) (Auto) 85% (31-73) 93% (31-73) Lymphocytes (%) (Auto) 9% (24-48) 5% (24-48) Monocytes (%) (Auto) 6% (0-9) 2% (0-9) Eosinophils (%) (Auto) 0% (0-3) 0% (0-3) Basophils (%) (Auto) 1% (0-3) 0% (0-3) Neutrophils # (Auto) 8.3x10^3uL (1.8-7.7) 11.6x10^3uL (1.8-7.7) Lymphocytes # (Auto) 0.8x10^3/uL (1.0-4.8) 0.6x10^3/uL (1.0-4.8) Monocytes # (Auto) 0.6x10^3/uL (0.0-1.1) 0.3x10^3/uL (0.0-1.1) Eosinophils # (Auto) 0.0x10^3/uL (0.0-0.7) 0.0x10^3/uL (0.0-0.7) Basophils # (Auto) 0.1x10^3/uL (0.0-0.2) 0.0x10^3/uL (0.0-0.2) Sodium Level 138mmol/L (136-145) 137mmol/L (136-145) Potassium Level 3.6mmol/L (3.5-5.1) 3.4mmol/L (3.5-5.1) Chloride Level 99mmol/L (98-107) 101mmol/L (98-107) Carbon Dioxide Level 30mmol/L (21-32) 33mmol/L (21-32) Anion Gap 9 (6-14) 3 (6-14) Blood Urea Nitrogen 5mg/dL (7-20) 14mg/dL (7-20) Creatinine 0.7mg/dL (0.6-1.0) 0.7mg/dL (0.6-1.0) Estimated GFR (Cockcroft-Gault) 101.6 101.6 BUN/Creatinine Ratio 7 (6-20) Glucose Level 111mg/dL (70-99) 253mg/dL (70-99) Lactic Acid Level 1.2mmol/L (0.4-2.0) Calcium Level 9.8mg/dL (8.5-10.1) 9.2mg/dL (8.5-10.1) Total Bilirubin 0.5mg/dL (0.2-1.0) Aspartate Amino Transf (AST/SGOT) 17U/L (15-37) Alanine Aminotransferase (ALT/SGPT) 17U/L (14-59) Alkaline Phosphatase 125U/L (46-116) Creatine Kinase 55U/L (26-192) Creatine Kinase MB (Mass) < 0.5ng/mL (0.0-3.6) Creatine Kinase MB Relative Index % (0-4) Troponin I Quantitative < 0.017ng/mL (0.000-0.055) PH-Xap-H-Type Natriuretic Peptide 205pg/mL (0-124) Total Protein 8.5g/dL (6.4-8.2) Albumin 3.9g/dL (3.4-5.0) Albumin/Globulin Ratio 0.8 (1.0-1.7) Urine Collection Type Unknown Urine Color Yellow Urine Clarity Cloudy Urine pH 6.0 Urine Specific [place] 1.010 Urine Protein Negativemg/dL (NEG-TRACE) Urine Glucose (UA) Negativemg/dL (NEG) Urine Ketones (Stick) Negativemg/dL (NEG) Urine Blood Negative (NEG) Urine Nitrite Negative (NEG) Urine Bilirubin Negative (NEG) Urine Urobilinogen Dipstick 1.0mg/dL (0.2 mg/dL) Urine Leukocyte Esterase Negative (NEG) Urine RBC 0/HPF (0-2) Urine WBC Occ/HPF (0-4) Urine Squamous Epithelial Cells Few/LPF Urine Bacteria 0/HPF (0-FEW) Urine Mucus Mod/LPF Segmented Neutrophils % 88% (35-66) Band Neutrophils % 5% (0-9) Lymphocytes % 5% (24-48) Atypical Lymphocytes % (Manual) 1% (0-0) Monocytes % 1% (0-10) Platelet Estimate Adequate (ADEQUATE) Target Cells Present Laboratory Tests Test 04/09/16 04:55 White Blood Count 12.5x10^3/uL (4.0-11.0) Red Blood Count 4.18x10^6/uL (3.50-5.40) Hemoglobin 12.3g/dL (12.0-15.5) Hematocrit 37.1% (36.0-47.0) Mean Corpuscular Volume 89fL (79-100) Mean Corpuscular Hemoglobin 29pg (25-35) Mean Corpuscular Hemoglobin Concent 33g/dL (31-37) Red Cell Distribution Width 13.6% (11.5-14.5) Platelet Count 180x10^3/uL (140-400) Neutrophils (%) (Auto) 93% (31-73) Lymphocytes (%) (Auto) 5% (24-48) Monocytes (%) (Auto) 2% (0-9) Eosinophils (%) (Auto) 0% (0-3) Basophils (%) (Auto) 0% (0-3) Neutrophils # (Auto) 11.6x10^3uL (1.8-7.7) Lymphocytes # (Auto) 0.6x10^3/uL (1.0-4.8) Monocytes # (Auto) 0.3x10^3/uL (0.0-1.1) Eosinophils # (Auto) 0.0x10^3/uL (0.0-0.7) Basophils # (Auto) 0.0x10^3/uL (0.0-0.2) Segmented Neutrophils % 88% (35-66) Band Neutrophils % 5% (0-9) Lymphocytes % 5% (24-48) Atypical Lymphocytes % (Manual) 1% (0-0) Monocytes % 1% (0-10) Platelet Estimate Adequate (ADEQUATE) Target Cells Present Sodium Level 137mmol/L (136-145) Potassium Level 3.4mmol/L (3.5-5.1) Chloride Level 101mmol/L (98-107) Carbon Dioxide Level 33mmol/L (21-32) Anion Gap 3 (6-14) Blood Urea Nitrogen 14mg/dL (7-20) Creatinine 0.7mg/dL (0.6-1.0) Estimated GFR (Cockcroft-Gault) 101.6 Glucose Level 253mg/dL (70-99) Calcium Level 9.2mg/dL (8.5-10.1) Microbiology 04/08/16 Blood Culture - Preliminary, Resulted NO GROWTH AFTER 1 DAY Medications Current Medications Sodium Chloride (Iv Sodium Chloride 0.9% 1000ml Bag) 1,000 ml @ 1,000 mls/hr Q1H IV Last administered on 04/07/16 20:09; Start 04/07/16 at 19:41; Stop at 20:40; Status DC Albuterol/ Ipratropium (Duoneb) 6 ml 1X ONCE NEB Last administered on 20:09; Start 04/07/16 at 19:45; Stop 04/07/16 at 19:51; Status DC Methylprednisolone Sodium Succinate (Solu-Medrol 125mg Vial) 100 mg 1X ONCE IV Last administered on 04/07/16 20:09; Start 04/07/16 at 19:45; Stop 04/07/16 at 19:51; Status DC Levofloxacin/ Dextrose (Levaquin Per Pharmacy) 1 each PRN DAILY PRN MC SEE COMMENTS; Start 04/08/16 at 00:15 Albuterol/ Ipratropium (Duoneb) 3 ml RTQID NEB Last administered on 04/09/16 07 :28; Start 04/08/16 at 08:00 Methylprednisolone Sodium Succinate 30 mg 30 mg TID IV Last administered on 04/09 08:26; Start 04/08/16 at 09:00 Levofloxacin/ Dextrose 100 ml @ 100 mls/hr 1X ONCE IV Last administered on 04:25; Start 04/08/16 at 00:30; Stop 04/08/16 at 01:29; Status DC Levofloxacin/ Dextrose (LEVAQUIN 250mg PREMIX) 50 ml @ 50 mls/hr Q24H IV Last administered on 04/08/16 21:10; Start 04/08/16 at 22:00 Acetaminophen (Tylenol) 325 mg PRN Q6HRS PRN PO MILD PAIN / TEMP Last administered on 04/08/16 21:15; Start 04/08/16 at 09:30 Acetaminophen/ Hydrocodone Bitart (Lortab 5/325) 1 tab PRN Q6HRS PRN PO MODERATE TO SEVERE PAIN Last administered on 04/08/16t 21:14; Start 04/08/16 at 09 :30 Hydralazine HCl (Apresoline) 10 mg PRN Q4HRS PRN IVP ELEVATED BP, SEE COMMENTS ; Start 04/08/16 at 09:30 Ondansetron HCl (Zofran) 4 mg PRN Q8HRS PRN IV NAUSEA/VOMITING; Start 04/08/16 at 09:30 Albuterol Sulfate (Ventolin Neb Soln) 2.5 mg PRN Q4HRS PRN NEB SHORTNESS OF BREATH; Start 04/08/16 at 09:30 Vitals/I & O Vital Sign - Last 24 Hours 04/08/16 04/08/16 04/08/16 04/08/16 11:00 11:00 11:35 11:50 Temp 99.8 100.8 99.8 100.8 Pulse 89 101 Resp 18 28 B/P 129/79 127/84 Pulse Ox 93 99 86 O2 Delivery Nasal Cannula Nasal Cannula Nasal Cannula Nasal Cannula O2 Flow Rate 2.0 2.0 2.0 2.0 04/08/16 04/08/16 04/08/16 04/08/16 13:40 15:00 15:13 19:00 Temp 98.4 97.8 98.4 97.8 Pulse 81 89 Resp 18 18 B/P 116/78 122/89 Pulse Ox 98 96 100 O2 Delivery Nasal Cannula Nasal Cannula Nasal Cannula O2 Flow Rate 2.0 2.0 2.0 2.0 04/08/16 04/08/16 04/08/16 04/08/16 19:28 20:20 22:47 23:00 Temp 98.4 98.4 Pulse 86 Resp 18 B/P 105/73 Pulse Ox 97 97 O2 Delivery Nasal Cannula Nasal Cannula Nasal Cannula Nasal Cannula O2 Flow Rate 2.0 2.0 2.0 2.0 04/09/16 04/09/16 04/09/16 04/09/16 03:00 07:00 07:28 07:42 Temp 98.0 97.7 98.0 97.7 Pulse 84 65 Resp 18 18 B/P 108/73 107/70 Pulse Ox 99 97 98 O2 Delivery Nasal Cannula Nasal Cannula Nasal Cannula Nasal Cannula O2 Flow Rate 2.0 2.0 2.0 2.0 04/09/16 10:49 Temp 97.9 97.9 Pulse 83 Resp 18 B/P 115/75 Pulse Ox 93 O2 Delivery Nasal Cannula O2 Flow Rate 1.0 Intake and Output 04/08/16 04/08/16 04/09/16 15:00 23:00 07:00 Intake Total 50 ml Balance 50 ml DONA KING MD Apr 09, 2016 10:55
[2016-04-09] MEDS ORDERED: MECLIZINE HCL 12.5 MG TABLET. PO PRN (11:00)
[2016-04-09] MEDS: HYDROCODONE/APAP 5/325MG TABLET. PO PRN ×2 (12:05→21:22)
--- NOTE | 2016-04-09 13:14 | PDOC ---
PULMONARY PROGRESS NOTES Subjective no soa Vitals Vital Signs Date Time Temp Pulse Resp B/P Pulse Ox O2 Delivery O2 Flow Rate FiO2 04/09/16 12:05 Nasal Cannula 1.0 04/09/16 11:23 97 04/09/16 10:49 97.9 83 18 115/75 97.9 General: Alert, No acute distress Lungs: Clear Cardiovascular: S1, S2 Abdomen: Soft, Non-tender Extremities: No Edema Skin: Warm Labs Laboratory Tests Test 04/07/16 20:06 04/07/16 20:12 04/08/16 01:55 04/09/16 04:55 Influenza Type A Antigen Negative (NEGATIVE) Influenza Type B Antigen Negative (NEGATIVE) White Blood Count 9.8x10^3/uL (4.0-11.0) 12.5x10^3/uL (4.0-11.0) Red Blood Count 5.07x10^6/uL (3.50-5.40) 4.18x10^6/uL (3.50-5.40) Hemoglobin 14.9g/dL (12.0-15.5) 12.3g/dL (12.0-15.5) Hematocrit 45.0% (36.0-47.0) 37.1% (36.0-47.0) Mean Corpuscular Volume 89fL (79-100) 89fL (79-100) Mean Corpuscular Hemoglobin 29pg (25-35) 29pg (25-35) Mean Corpuscular Hemoglobin Concent 33g/dL (31-37) 33g/dL (31-37) Red Cell Distribution Width 13.6% (11.5-14.5) 13.6% (11.5-14.5) Platelet Count 212x10^3/uL (140-400) 180x10^3/uL (140-400) Neutrophils (%) (Auto) 85% (31-73) 93% (31-73) Lymphocytes (%) (Auto) 9% (24-48) 5% (24-48) Monocytes (%) (Auto) 6% (0-9) 2% (0-9) Eosinophils (%) (Auto) 0% (0-3) 0% (0-3) Basophils (%) (Auto) 1% (0-3) 0% (0-3) Neutrophils # (Auto) 8.3x10^3uL (1.8-7.7) 11.6x10^3uL (1.8-7.7) Lymphocytes # (Auto) 0.8x10^3/uL (1.0-4.8) 0.6x10^3/uL (1.0-4.8) Monocytes # (Auto) 0.6x10^3/uL (0.0-1.1) 0.3x10^3/uL (0.0-1.1) Eosinophils # (Auto) 0.0x10^3/uL (0.0-0.7) 0.0x10^3/uL (0.0-0.7) Basophils # (Auto) 0.1x10^3/uL (0.0-0.2) 0.0x10^3/uL (0.0-0.2) Sodium Level 138mmol/L (136-145) 137mmol/L (136-145) Potassium Level 3.6mmol/L (3.5-5.1) 3.4mmol/L (3.5-5.1) Chloride Level 99mmol/L (98-107) 101mmol/L (98-107) Carbon Dioxide Level 30mmol/L (21-32) 33mmol/L (21-32) Anion Gap 9 (6-14) 3 (6-14) Blood Urea Nitrogen 5mg/dL (7-20) 14mg/dL (7-20) Creatinine 0.7mg/dL (0.6-1.0) 0.7mg/dL (0.6-1.0) Estimated GFR (Cockcroft-Gault) 101.6 101.6 BUN/Creatinine Ratio 7 (6-20) Glucose Level 111mg/dL (70-99) 253mg/dL (70-99) Lactic Acid Level 1.2mmol/L (0.4-2.0) Calcium Level 9.8mg/dL (8.5-10.1) 9.2mg/dL (8.5-10.1) Total Bilirubin 0.5mg/dL (0.2-1.0) Aspartate Amino Transf (AST/SGOT) 17U/L (15-37) Alanine Aminotransferase (ALT/SGPT) 17U/L (14-59) Alkaline Phosphatase 125U/L (46-116) Creatine Kinase 55U/L (26-192) Creatine Kinase MB (Mass) < 0.5ng/mL (0.0-3.6) Creatine Kinase MB Relative Index % (0-4) Troponin I Quantitative < 0.017ng/mL (0.000-0.055) LK-Nrv-C-Type Natriuretic Peptide 205pg/mL (0-124) Total Protein 8.5g/dL (6.4-8.2) Albumin 3.9g/dL (3.4-5.0) Albumin/Globulin Ratio 0.8 (1.0-1.7) Urine Collection Type Unknown Urine Color Yellow Urine Clarity Cloudy Urine pH 6.0 Urine Specific [place] 1.010 Urine Protein Negativemg/dL (NEG-TRACE) Urine Glucose (UA) Negativemg/dL (NEG) Urine Ketones (Stick) Negativemg/dL (NEG) Urine Blood Negative (NEG) Urine Nitrite Negative (NEG) Urine Bilirubin Negative (NEG) Urine Urobilinogen Dipstick 1.0mg/dL (0.2 mg/dL) Urine Leukocyte Esterase Negative (NEG) Urine RBC 0/HPF (0-2) Urine WBC Occ/HPF (0-4) Urine Squamous Epithelial Cells Few/LPF Urine Bacteria 0/HPF (0-FEW) Urine Mucus Mod/LPF Segmented Neutrophils % 88% (35-66) Band Neutrophils % 5% (0-9) Lymphocytes % 5% (24-48) Atypical Lymphocytes % (Manual) 1% (0-0) Monocytes % 1% (0-10) Platelet Estimate Adequate (ADEQUATE) Target Cells Present Laboratory Tests Test 04/09/16 04:55 White Blood Count 12.5x10^3/uL (4.0-11.0) Red Blood Count 4.18x10^6/uL (3.50-5.40) Hemoglobin 12.3g/dL (12.0-15.5) Hematocrit 37.1% (36.0-47.0) Mean Corpuscular Volume 89fL (79-100) Mean Corpuscular Hemoglobin 29pg (25-35) Mean Corpuscular Hemoglobin Concent 33g/dL (31-37) Red Cell Distribution Width 13.6% (11.5-14.5) Platelet Count 180x10^3/uL (140-400) Neutrophils (%) (Auto) 93% (31-73) Lymphocytes (%) (Auto) 5% (24-48) Monocytes (%) (Auto) 2% (0-9) Eosinophils (%) (Auto) 0% (0-3) Basophils (%) (Auto) 0% (0-3) Neutrophils # (Auto) 11.6x10^3uL (1.8-7.7) Lymphocytes # (Auto) 0.6x10^3/uL (1.0-4.8) Monocytes # (Auto) 0.3x10^3/uL (0.0-1.1) Eosinophils # (Auto) 0.0x10^3/uL (0.0-0.7) Basophils # (Auto) 0.0x10^3/uL (0.0-0.2) Segmented Neutrophils % 88% (35-66) Band Neutrophils % 5% (0-9) Lymphocytes % 5% (24-48) Atypical Lymphocytes % (Manual) 1% (0-0) Monocytes % 1% (0-10) Platelet Estimate Adequate (ADEQUATE) Target Cells Present Sodium Level 137mmol/L (136-145) Potassium Level 3.4mmol/L (3.5-5.1) Chloride Level 101mmol/L (98-107) Carbon Dioxide Level 33mmol/L (21-32) Anion Gap 3 (6-14) Blood Urea Nitrogen 14mg/dL (7-20) Creatinine 0.7mg/dL (0.6-1.0) Estimated GFR (Cockcroft-Gault) 101.6 Glucose Level 253mg/dL (70-99) Calcium Level 9.2mg/dL (8.5-10.1) Impression . 1. Dyspnea with acute hypoxic respiratory failure secondary to acute exacerbation of chronic obstructive pulmonary disease and possible viral pneumonitis. 2. Abnormal chest x-ray with slightly prominent interstitial markings. 3. Ongoing tobaccoism. Plan . 1. Continue present oxygen. 2. Bronchodilators. 3. Levaquin. 4. IV steroids. 5. CT chest without contrast reviewed/ emphysema 6. echocardiogram. reviewed EVERTON CUNNINGHAM MD Apr 09, 2016 13:14
[2016-04-09 14:56] VITALS: BP 104/71
[2016-04-09 19:00] VITALS: BP 134/84
[2016-04-09 23:00] VITALS: BP 101/65
[2016-04-10 03:00] VITALS: BP 116/90
[2016-04-10 04:47] LABS: BASO % 0 % (0-3); EOS % 0 % (0-3); HEMATOCRIT 35.7 % (36.0-47.0); HEMOGLOBIN 11.9 g/dL (12.0-15.5); LYMPH # 0.6 x10^3/uL (1.0-4.8); LYMPH % 3 % (24-48); MEAN CORPUSCULAR HEMOGLOBIN 30 pg (25-35); MEAN CORPUSCULAR HGB CONC 33 g/dL (31-37); MEAN CORPUSCULAR VOLUME 89 fL (79-100); MONO % 2 % (0-9); NEUT % 95 % (31-73); PLATELET COUNT 186 x10^3/uL (140-400); RED BLOOD COUNT 4.03 x10^6/uL (3.50-5.40); RED CELL DISTRIBUTION WIDTH 13.5 % (11.5-14.5)
[2016-04-10 05:00] LABS: CALCIUM 8.9 mg/dL (8.5-10.1); CREATININE 0.6 mg/dL (0.6-1.0); GFR 121.4; POTASSIUM 3.9 mmol/L (3.5-5.1)
[2016-04-10 07:00] VITALS: BP 109/73
[2016-04-10] MEDS: IPRATRPIUM/ALBUTEROL 0.5/2.5MG 3 ML NEBU. NEB SCH ×5 (07:30→22:00)
[2016-04-10] MEDS: HYDROCODONE/APAP 5/325MG TABLET. PO PRN ×2 (08:07→14:11)
[2016-04-10] MEDS: methylPREDNISolone SOD SUCC PF 40 MG/ML VIAL. IV SCH ×3 (08:07→20:50)
[2016-04-10 11:00] VITALS: BP 112/84
--- NOTE | 2016-04-10 12:47 | PDOC ---
PULMONARY PROGRESS NOTES Subjective gets soa wo oxygen Vitals Vital Signs Date Time Temp Pulse Resp B/P Pulse Ox O2 Delivery O2 Flow Rate FiO2 04/10/16 11:43 91 Room Air 04/10/16 11:00 97.7 79 19 112/84 97.7 04/10/16 07:55 1.0 General: Alert, No acute distress Lungs: Clear Cardiovascular: S1, S2 Abdomen: Soft, Non-tender Extremities: No Edema Skin: Warm Labs Laboratory Tests Test 04/09/16 04:55 04/10/16 04:15 White Blood Count 12.5x10^3/uL (4.0-11.0) 23.0x10^3/uL (4.0-11.0) Red Blood Count 4.18x10^6/uL (3.50-5.40) 4.03x10^6/uL (3.50-5.40) Hemoglobin 12.3g/dL (12.0-15.5) 11.9g/dL (12.0-15.5) Hematocrit 37.1% (36.0-47.0) 35.7% (36.0-47.0) Mean Corpuscular Volume 89fL (79-100) 89fL (79-100) Mean Corpuscular Hemoglobin 29pg (25-35) 30pg (25-35) Mean Corpuscular Hemoglobin Concent 33g/dL (31-37) 33g/dL (31-37) Red Cell Distribution Width 13.6% (11.5-14.5) 13.5% (11.5-14.5) Platelet Count 180x10^3/uL (140-400) 186x10^3/uL (140-400) Neutrophils (%) (Auto) 93% (31-73) 95% (31-73) Lymphocytes (%) (Auto) 5% (24-48) 3% (24-48) Monocytes (%) (Auto) 2% (0-9) 2% (0-9) Eosinophils (%) (Auto) 0% (0-3) 0% (0-3) Basophils (%) (Auto) 0% (0-3) 0% (0-3) Neutrophils # (Auto) 11.6x10^3uL (1.8-7.7) 21.9x10^3uL (1.8-7.7) Lymphocytes # (Auto) 0.6x10^3/uL (1.0-4.8) 0.6x10^3/uL (1.0-4.8) Monocytes # (Auto) 0.3x10^3/uL (0.0-1.1) 0.5x10^3/uL (0.0-1.1) Eosinophils # (Auto) 0.0x10^3/uL (0.0-0.7) 0.0x10^3/uL (0.0-0.7) Basophils # (Auto) 0.0x10^3/uL (0.0-0.2) 0.0x10^3/uL (0.0-0.2) Segmented Neutrophils % 88% (35-66) Band Neutrophils % 5% (0-9) Lymphocytes % 5% (24-48) Atypical Lymphocytes % (Manual) 1% (0-0) Monocytes % 1% (0-10) Platelet Estimate Adequate (ADEQUATE) Target Cells Present Sodium Level 137mmol/L (136-145) 141mmol/L (136-145) Potassium Level 3.4mmol/L (3.5-5.1) 3.9mmol/L (3.5-5.1) Chloride Level 101mmol/L (98-107) 102mmol/L (98-107) Carbon Dioxide Level 33mmol/L (21-32) 35mmol/L (21-32) Anion Gap 3 (6-14) 4 (6-14) Blood Urea Nitrogen 14mg/dL (7-20) 18mg/dL (7-20) Creatinine 0.7mg/dL (0.6-1.0) 0.6mg/dL (0.6-1.0) Estimated GFR (Cockcroft-Gault) 101.6 121.4 Glucose Level 253mg/dL (70-99) 113mg/dL (70-99) Calcium Level 9.2mg/dL (8.5-10.1) 8.9mg/dL (8.5-10.1) Laboratory Tests Test 04/10/16 04:15 White Blood Count 23.0x10^3/uL (4.0-11.0) Red Blood Count 4.03x10^6/uL (3.50-5.40) Hemoglobin 11.9g/dL (12.0-15.5) Hematocrit 35.7% (36.0-47.0) Mean Corpuscular Volume 89fL (79-100) Mean Corpuscular Hemoglobin 30pg (25-35) Mean Corpuscular Hemoglobin Concent 33g/dL (31-37) Red Cell Distribution Width 13.5% (11.5-14.5) Platelet Count 186x10^3/uL (140-400) Neutrophils (%) (Auto) 95% (31-73) Lymphocytes (%) (Auto) 3% (24-48) Monocytes (%) (Auto) 2% (0-9) Eosinophils (%) (Auto) 0% (0-3) Basophils (%) (Auto) 0% (0-3) Neutrophils # (Auto) 21.9x10^3uL (1.8-7.7) Lymphocytes # (Auto) 0.6x10^3/uL (1.0-4.8) Monocytes # (Auto) 0.5x10^3/uL (0.0-1.1) Eosinophils # (Auto) 0.0x10^3/uL (0.0-0.7) Basophils # (Auto) 0.0x10^3/uL (0.0-0.2) Sodium Level 141mmol/L (136-145) Potassium Level 3.9mmol/L (3.5-5.1) Chloride Level 102mmol/L (98-107) Carbon Dioxide Level 35mmol/L (21-32) Anion Gap 4 (6-14) Blood Urea Nitrogen 18mg/dL (7-20) Creatinine 0.6mg/dL (0.6-1.0) Estimated GFR (Cockcroft-Gault) 121.4 Glucose Level 113mg/dL (70-99) Calcium Level 8.9mg/dL (8.5-10.1) Impression . 1. Dyspnea with acute hypoxic respiratory failure secondary to acute exacerbation of chronic obstructive pulmonary disease and possible viral pneumonitis. 2. Abnormal chest x-ray with slightly prominent interstitial markings. 3. Ongoing tobaccoism. Plan . 1. Continue present oxygen. 2. Bronchodilators. 3. Levaquin. 4. steroids.with taper 5. CT chest without contrast reviewed/ emphysema 6. echocardiogram. reviewed 7. will likely need oxygen . will need 6 min walk EVERTON CUNNINGHAM MD Apr 10, 2016 12:47
--- NOTE | 2016-04-10 13:27 | PDOC ---
PROGRESS NOTES Chief Complaint Chief Complaint cc: dyspnea, hypoxia COPD exacerbation w/ acute bronchitis acute hypoxia, resp Dizziness and Ear pain chronic diastoliC CHF History of Present Illness History of Present Illness Q4 nebulization Meclizine PT Echo LVEF 70% Levaquin and iv solumedrol pulmonology following no fever no chills. Vitals Vitals Vital Signs Date Time Temp Pulse Resp B/P Pulse Ox O2 Delivery O2 Flow Rate FiO2 04/10/16 11:43 91 Room Air 04/10/16 11:00 97.7 79 19 112/84 97.7 04/10/16 07:55 1.0 Physical Exam General: Alert, Oriented X3 Heart: Normal S1, Normal S2 Lungs: Clear Abdomen: Normal bowel sounds Extremities: No clubbing, No cyanosis Labs LABS Laboratory Tests Test 04/10/16 04:15 White Blood Count 23.0x10^3/uL (4.0-11.0) Red Blood Count 4.03x10^6/uL (3.50-5.40) Hemoglobin 11.9g/dL (12.0-15.5) Hematocrit 35.7% (36.0-47.0) Mean Corpuscular Volume 89fL (79-100) Mean Corpuscular Hemoglobin 30pg (25-35) Mean Corpuscular Hemoglobin Concent 33g/dL (31-37) Red Cell Distribution Width 13.5% (11.5-14.5) Platelet Count 186x10^3/uL (140-400) Neutrophils (%) (Auto) 95% (31-73) Lymphocytes (%) (Auto) 3% (24-48) Monocytes (%) (Auto) 2% (0-9) Eosinophils (%) (Auto) 0% (0-3) Basophils (%) (Auto) 0% (0-3) Neutrophils # (Auto) 21.9x10^3uL (1.8-7.7) Lymphocytes # (Auto) 0.6x10^3/uL (1.0-4.8) Monocytes # (Auto) 0.5x10^3/uL (0.0-1.1) Eosinophils # (Auto) 0.0x10^3/uL (0.0-0.7) Basophils # (Auto) 0.0x10^3/uL (0.0-0.2) Sodium Level 141mmol/L (136-145) Potassium Level 3.9mmol/L (3.5-5.1) Chloride Level 102mmol/L (98-107) Carbon Dioxide Level 35mmol/L (21-32) Anion Gap 4 (6-14) Blood Urea Nitrogen 18mg/dL (7-20) Creatinine 0.6mg/dL (0.6-1.0) Estimated GFR (Cockcroft-Gault) 121.4 Glucose Level 113mg/dL (70-99) Calcium Level 8.9mg/dL (8.5-10.1) Review of Systems Review of Systems no n/v/d neck pain and ear pain Assessment and Plan Assessmemt and Plan back pain, neck pain req. pain meds 6 min walk still weak and feels dyspneic Problems Medical Problems: (1) COPD with acute exacerbation Status: Acute (2) Fever Status: Acute (3) Hypoxia Status: Acute Problems: Comment Review of Relevant I have reviewed the following items lexi (where applicable) has been applied. Labs Laboratory Tests Test 04/09/16 04:55 04/10/16 04:15 White Blood Count 12.5x10^3/uL (4.0-11.0) 23.0x10^3/uL (4.0-11.0) Red Blood Count 4.18x10^6/uL (3.50-5.40) 4.03x10^6/uL (3.50-5.40) Hemoglobin 12.3g/dL (12.0-15.5) 11.9g/dL (12.0-15.5) Hematocrit 37.1% (36.0-47.0) 35.7% (36.0-47.0) Mean Corpuscular Volume 89fL (79-100) 89fL (79-100) Mean Corpuscular Hemoglobin 29pg (25-35) 30pg (25-35) Mean Corpuscular Hemoglobin Concent 33g/dL (31-37) 33g/dL (31-37) Red Cell Distribution Width 13.6% (11.5-14.5) 13.5% (11.5-14.5) Platelet Count 180x10^3/uL (140-400) 186x10^3/uL (140-400) Neutrophils (%) (Auto) 93% (31-73) 95% (31-73) Lymphocytes (%) (Auto) 5% (24-48) 3% (24-48) Monocytes (%) (Auto) 2% (0-9) 2% (0-9) Eosinophils (%) (Auto) 0% (0-3) 0% (0-3) Basophils (%) (Auto) 0% (0-3) 0% (0-3) Neutrophils # (Auto) 11.6x10^3uL (1.8-7.7) 21.9x10^3uL (1.8-7.7) Lymphocytes # (Auto) 0.6x10^3/uL (1.0-4.8) 0.6x10^3/uL (1.0-4.8) Monocytes # (Auto) 0.3x10^3/uL (0.0-1.1) 0.5x10^3/uL (0.0-1.1) Eosinophils # (Auto) 0.0x10^3/uL (0.0-0.7) 0.0x10^3/uL (0.0-0.7) Basophils # (Auto) 0.0x10^3/uL (0.0-0.2) 0.0x10^3/uL (0.0-0.2) Segmented Neutrophils % 88% (35-66) Band Neutrophils % 5% (0-9) Lymphocytes % 5% (24-48) Atypical Lymphocytes % (Manual) 1% (0-0) Monocytes % 1% (0-10) Platelet Estimate Adequate (ADEQUATE) Target Cells Present Sodium Level 137mmol/L (136-145) 141mmol/L (136-145) Potassium Level 3.4mmol/L (3.5-5.1) 3.9mmol/L (3.5-5.1) Chloride Level 101mmol/L (98-107) 102mmol/L (98-107) Carbon Dioxide Level 33mmol/L (21-32) 35mmol/L (21-32) Anion Gap 3 (6-14) 4 (6-14) Blood Urea Nitrogen 14mg/dL (7-20) 18mg/dL (7-20) Creatinine 0.7mg/dL (0.6-1.0) 0.6mg/dL (0.6-1.0) Estimated GFR (Cockcroft-Gault) 101.6 121.4 Glucose Level 253mg/dL (70-99) 113mg/dL (70-99) Calcium Level 9.2mg/dL (8.5-10.1) 8.9mg/dL (8.5-10.1) Laboratory Tests Test 04/10/16 04:15 White Blood Count 23.0x10^3/uL (4.0-11.0) Red Blood Count 4.03x10^6/uL (3.50-5.40) Hemoglobin 11.9g/dL (12.0-15.5) Hematocrit 35.7% (36.0-47.0) Mean Corpuscular Volume 89fL (79-100) Mean Corpuscular Hemoglobin 30pg (25-35) Mean Corpuscular Hemoglobin Concent 33g/dL (31-37) Red Cell Distribution Width 13.5% (11.5-14.5) Platelet Count 186x10^3/uL (140-400) Neutrophils (%) (Auto) 95% (31-73) Lymphocytes (%) (Auto) 3% (24-48) Monocytes (%) (Auto) 2% (0-9) Eosinophils (%) (Auto) 0% (0-3) Basophils (%) (Auto) 0% (0-3) Neutrophils # (Auto) 21.9x10^3uL (1.8-7.7) Lymphocytes # (Auto) 0.6x10^3/uL (1.0-4.8) Monocytes # (Auto) 0.5x10^3/uL (0.0-1.1) Eosinophils # (Auto) 0.0x10^3/uL (0.0-0.7) Basophils # (Auto) 0.0x10^3/uL (0.0-0.2) Sodium Level 141mmol/L (136-145) Potassium Level 3.9mmol/L (3.5-5.1) Chloride Level 102mmol/L (98-107) Carbon Dioxide Level 35mmol/L (21-32) Anion Gap 4 (6-14) Blood Urea Nitrogen 18mg/dL (7-20) Creatinine 0.6mg/dL (0.6-1.0) Estimated GFR (Cockcroft-Gault) 121.4 Glucose Level 113mg/dL (70-99) Calcium Level 8.9mg/dL (8.5-10.1) Microbiology 04/08/16 Blood Culture - Preliminary, Resulted NO GROWTH AFTER 2 DAYS Medications Current Medications Sodium Chloride (Iv Sodium Chloride 0.9% 1000ml Bag) 1,000 ml @ 1,000 mls/hr Q1H IV Last administered on 04/07/16 20:09; Start 04/07/16 at 19:41; Stop at 20:40; Status DC Albuterol/ Ipratropium (Duoneb) 6 ml 1X ONCE NEB Last administered on 20:09; Start 04/07/16 at 19:45; Stop 04/07/16 at 19:51; Status DC Methylprednisolone Sodium Succinate (Solu-Medrol 125mg Vial) 100 mg 1X ONCE IV Last administered on 04/07/16 20:09; Start 04/07/16 at 19:45; Stop 04/07/16 at 19:51; Status DC Levofloxacin/ Dextrose (Levaquin Per Pharmacy) 1 each PRN DAILY PRN [facility] SEE COMMENTS; Start 04/08/16 at 00:15 Albuterol/ Ipratropium (Duoneb) 3 ml RTQID NEB Last administered on 04/10/16 11 :42; Start 04/08/16 at 08:00 Methylprednisolone Sodium Succinate 30 mg 30 mg TID IV Last administered on 04/10 08:07; Start 04/08/16 at 09:00 Levofloxacin/ Dextrose 100 ml @ 100 mls/hr 1X ONCE IV Last administered on 04:25; Start 04/08/16 at 00:30; Stop 04/08/16 at 01:29; Status DC Levofloxacin/ Dextrose (LEVAQUIN 250mg PREMIX) 50 ml @ 50 mls/hr Q24H IV Last administered on 04/09/16 21:22; Start 04/08/16 at 22:00 Acetaminophen (Tylenol) 325 mg PRN Q6HRS PRN PO MILD PAIN / TEMP Last administered on 04/08/16 21:15; Start 04/08/16 at 09:30 Acetaminophen/ Hydrocodone Bitart (Lortab 5/325) 1 tab PRN Q6HRS PRN PO MODERATE TO SEVERE PAIN Last administered on 04/10/16 08:07; Start 04/08/16 at 09 :30 Hydralazine HCl (Apresoline) 10 mg PRN Q4HRS PRN IVP ELEVATED BP, SEE COMMENTS ; Start 04/08/16 at 09:30 Ondansetron HCl (Zofran) 4 mg PRN Q8HRS PRN IV NAUSEA/VOMITING; Start 04/08/16 at 09:30 Albuterol Sulfate (Ventolin Neb Soln) 2.5 mg PRN Q4HRS PRN NEB SHORTNESS OF BREATH; Start 04/08/16 at 09:30 Meclizine HCl (Antivert) 12.5 mg PRN Q6HRS PRN PO DIZZINESS Last administered on 04/09/16 12:05; Start 04/09/16 at 11:00 Vitals/I & O Vital Sign - Last 24 Hours 04/09/16 04/09/16 04/09/16 04/09/16 14:56 15:22 19:00 20:00 Temp 98.0 98.4 98.0 98.4 Pulse 80 102 Resp 18 20 B/P 104/71 134/84 Pulse Ox 97 96 O2 Delivery Nasal Cannula Nasal Cannula Nasal Cannula Nasal Cannula O2 Flow Rate 1.0 1.0 1.0 1.0 04/09/16 04/09/16 04/09/16 04/09/16 20:25 21:22 22:22 23:00 Temp 98.4 98.4 Pulse 91 Resp 16 16 20 B/P 101/65 Pulse Ox 96 96 O2 Delivery Nasal Cannula Nasal Cannula Nasal Cannula O2 Flow Rate 1.0 1.0 1.0 1.0 04/10/16 04/10/16 04/10/16 04/10/16 03:00 07:00 07:30 07:55 Temp 98.3 97.9 98.3 97.9 Pulse 84 82 Resp 20 19 B/P 116/90 109/73 Pulse Ox 96 95 92 O2 Delivery Nasal Cannula Room Air Room Air Nasal Cannula O2 Flow Rate 1.0 1.0 04/10/16 04/10/16 04/10/16 04/10/16 08:07 09:07 11:00 11:43 Temp 97.7 97.7 Pulse 79 Resp 19 B/P 112/84 Pulse Ox 93 91 O2 Delivery Room Air Room Air Room Air Room Air Intake and Output 04/09/16 04/09/16 04/10/16 15:00 23:00 07:00 Intake Total 100 ml Balance 100 ml REUBEN RAWLS MD Apr 10, 2016 13:27
[2016-04-10 15:00] VITALS: BP 114/80
[2016-04-10] MEDS: ENOXAPARIN 40 MG/0.4 ML DISP.SYRIN. SQ SCH (16:00)
[2016-04-10 19:00] VITALS: BP 122/73
[2016-04-10] MEDS: DOCUSATE 100 MG/10 ML SOLUTION. AS SCH ×2 (21:00→22:45)
[2016-04-10 23:00] VITALS: BP 121/79
[2016-04-11 03:00] VITALS: BP 126/85
[2016-04-11 07:00] VITALS: BP 133/90
[2016-04-11 07:26] LABS: CALCIUM 9.4 mg/dL (8.5-10.1); CREATININE 0.5 mg/dL (0.6-1.0); GFR 149.8; POTASSIUM 4.1 mmol/L (3.5-5.1)
[2016-04-11] MEDS: IPRATRPIUM/ALBUTEROL 0.5/2.5MG 3 ML NEBU. NEB SCH ×4 (07:34→19:22)
[2016-04-11 07:38] LABS: BASO % 0 % (0-3); EOS % 0 % (0-3); HEMATOCRIT 35.1 % (36.0-47.0); HEMOGLOBIN 11.6 g/dL (12.0-15.5); LYMPH # 0.9 x10^3/uL (1.0-4.8); LYMPH % 5 % (24-48); MEAN CORPUSCULAR HEMOGLOBIN 29 pg (25-35); MEAN CORPUSCULAR HGB CONC 33 g/dL (31-37); MEAN CORPUSCULAR VOLUME 89 fL (79-100); MONO % 4 % (0-9); NEUT % 90 % (31-73); PLATELET COUNT 202 x10^3/uL (140-400); RED BLOOD COUNT 3.96 x10^6/uL (3.50-5.40); RED CELL DISTRIBUTION WIDTH 13.3 % (11.5-14.5); WHITE BLOOD COUNT 17.8 x10^3/uL (4.0-11.0)
[2016-04-11] MEDS: DOCUSATE 100 MG/10 ML SOLUTION. AS SCH ×2 (08:49→21:00)
[2016-04-11] MEDS: methylPREDNISolone SOD SUCC PF 40 MG/ML VIAL. IV SCH ×3 (08:50→22:16)
[2016-04-11] MEDS: HYDROCODONE/APAP 5/325MG TABLET. PO PRN ×2 (08:50→18:21)
[2016-04-11 11:00] VITALS: BP 115/81
--- NOTE | 2016-04-11 13:18 | PDOC ---
PROGRESS NOTES Chief Complaint Chief Complaint cc: dyspnea, hypoxia COPD exacerbation w/ acute bronchitis Respiratory failure, hypoxic Dizziness and Ear pain chronic diastolic CHF Plan 6 min walk test echo reviwed, nebulizations 2 sets of troponin meclizine supportive care pt says she is not ready for DC today. History of Present Illness History of Present Illness doing better dizziness no chest pain no fever no chills. no syncope Vitals Vitals Vital Signs Date Time Temp Pulse Resp B/P Pulse Ox O2 Delivery O2 Flow Rate FiO2 04/11/16 12:04 Room Air 04/11/16 11:00 97.5 78 16 115/81 96 97.5 04/10/16 20:00 1.0 Physical Exam General: Alert, Oriented X3 Heart: Normal S1, Normal S2 Lungs: Clear Abdomen: Normal bowel sounds Extremities: No clubbing, No cyanosis Labs LABS Laboratory Tests Test 04/11/16 06:00 White Blood Count 17.8x10^3/uL (4.0-11.0) Red Blood Count 3.96x10^6/uL (3.50-5.40) Hemoglobin 11.6g/dL (12.0-15.5) Hematocrit 35.1% (36.0-47.0) Mean Corpuscular Volume 89fL (79-100) Mean Corpuscular Hemoglobin 29pg (25-35) Mean Corpuscular Hemoglobin Concent 33g/dL (31-37) Red Cell Distribution Width 13.3% (11.5-14.5) Platelet Count 202x10^3/uL (140-400) Neutrophils (%) (Auto) 90% (31-73) Lymphocytes (%) (Auto) 5% (24-48) Monocytes (%) (Auto) 4% (0-9) Eosinophils (%) (Auto) 0% (0-3) Basophils (%) (Auto) 0% (0-3) Neutrophils # (Auto) 16.1x10^3uL (1.8-7.7) Lymphocytes # (Auto) 0.9x10^3/uL (1.0-4.8) Monocytes # (Auto) 0.8x10^3/uL (0.0-1.1) Eosinophils # (Auto) 0.0x10^3/uL (0.0-0.7) Basophils # (Auto) 0.0x10^3/uL (0.0-0.2) Sodium Level 141mmol/L (136-145) Potassium Level 4.1mmol/L (3.5-5.1) Chloride Level 103mmol/L (98-107) Carbon Dioxide Level 35mmol/L (21-32) Anion Gap 3 (6-14) Blood Urea Nitrogen 16mg/dL (7-20) Creatinine 0.5mg/dL (0.6-1.0) Estimated GFR (Cockcroft-Gault) 149.8 Glucose Level 112mg/dL (70-99) Calcium Level 9.4mg/dL (8.5-10.1) Assessment and Plan Assessmemt and Plan Problems Medical Problems: (1) COPD with acute exacerbation Status: Acute (2) Fever Status: Acute (3) Hypoxia Status: Acute Problems: Comment Review of Relevant I have reviewed the following items lexi (where applicable) has been applied. Labs Laboratory Tests Test 04/10/16 04:15 04/11/16 06:00 White Blood Count 23.0x10^3/uL (4.0-11.0) 17.8x10^3/uL (4.0-11.0) Red Blood Count 4.03x10^6/uL (3.50-5.40) 3.96x10^6/uL (3.50-5.40) Hemoglobin 11.9g/dL (12.0-15.5) 11.6g/dL (12.0-15.5) Hematocrit 35.7% (36.0-47.0) 35.1% (36.0-47.0) Mean Corpuscular Volume 89fL (79-100) 89fL (79-100) Mean Corpuscular Hemoglobin 30pg (25-35) 29pg (25-35) Mean Corpuscular Hemoglobin Concent 33g/dL (31-37) 33g/dL (31-37) Red Cell Distribution Width 13.5% (11.5-14.5) 13.3% (11.5-14.5) Platelet Count 186x10^3/uL (140-400) 202x10^3/uL (140-400) Neutrophils (%) (Auto) 95% (31-73) 90% (31-73) Lymphocytes (%) (Auto) 3% (24-48) 5% (24-48) Monocytes (%) (Auto) 2% (0-9) 4% (0-9) Eosinophils (%) (Auto) 0% (0-3) 0% (0-3) Basophils (%) (Auto) 0% (0-3) 0% (0-3) Neutrophils # (Auto) 21.9x10^3uL (1.8-7.7) 16.1x10^3uL (1.8-7.7) Lymphocytes # (Auto) 0.6x10^3/uL (1.0-4.8) 0.9x10^3/uL (1.0-4.8) Monocytes # (Auto) 0.5x10^3/uL (0.0-1.1) 0.8x10^3/uL (0.0-1.1) Eosinophils # (Auto) 0.0x10^3/uL (0.0-0.7) 0.0x10^3/uL (0.0-0.7) Basophils # (Auto) 0.0x10^3/uL (0.0-0.2) 0.0x10^3/uL (0.0-0.2) Sodium Level 141mmol/L (136-145) 141mmol/L (136-145) Potassium Level 3.9mmol/L (3.5-5.1) 4.1mmol/L (3.5-5.1) Chloride Level 102mmol/L (98-107) 103mmol/L (98-107) Carbon Dioxide Level 35mmol/L (21-32) 35mmol/L (21-32) Anion Gap 4 (6-14) 3 (6-14) Blood Urea Nitrogen 18mg/dL (7-20) 16mg/dL (7-20) Creatinine 0.6mg/dL (0.6-1.0) 0.5mg/dL (0.6-1.0) Estimated GFR (Cockcroft-Gault) 121.4 149.8 Glucose Level 113mg/dL (70-99) 112mg/dL (70-99) Calcium Level 8.9mg/dL (8.5-10.1) 9.4mg/dL (8.5-10.1) Laboratory Tests Test 04/11/16 06:00 White Blood Count 17.8x10^3/uL (4.0-11.0) Red Blood Count 3.96x10^6/uL (3.50-5.40) Hemoglobin 11.6g/dL (12.0-15.5) Hematocrit 35.1% (36.0-47.0) Mean Corpuscular Volume 89fL (79-100) Mean Corpuscular Hemoglobin 29pg (25-35) Mean Corpuscular Hemoglobin Concent 33g/dL (31-37) Red Cell Distribution Width 13.3% (11.5-14.5) Platelet Count 202x10^3/uL (140-400) Neutrophils (%) (Auto) 90% (31-73) Lymphocytes (%) (Auto) 5% (24-48) Monocytes (%) (Auto) 4% (0-9) Eosinophils (%) (Auto) 0% (0-3) Basophils (%) (Auto) 0% (0-3) Neutrophils # (Auto) 16.1x10^3uL (1.8-7.7) Lymphocytes # (Auto) 0.9x10^3/uL (1.0-4.8) Monocytes # (Auto) 0.8x10^3/uL (0.0-1.1) Eosinophils # (Auto) 0.0x10^3/uL (0.0-0.7) Basophils # (Auto) 0.0x10^3/uL (0.0-0.2) Sodium Level 141mmol/L (136-145) Potassium Level 4.1mmol/L (3.5-5.1) Chloride Level 103mmol/L (98-107) Carbon Dioxide Level 35mmol/L (21-32) Anion Gap 3 (6-14) Blood Urea Nitrogen 16mg/dL (7-20) Creatinine 0.5mg/dL (0.6-1.0) Estimated GFR (Cockcroft-Gault) 149.8 Glucose Level 112mg/dL (70-99) Calcium Level 9.4mg/dL (8.5-10.1) Microbiology 04/08/16 Blood Culture - Preliminary, Resulted NO GROWTH AFTER 3 DAYS Medications Current Medications Sodium Chloride (Iv Sodium Chloride 0.9% 1000ml Bag) 1,000 ml @ 1,000 mls/hr Q1H IV Last administered on 04/07/16 20:09; Start 04/07/16 at 19:41; Stop at 20:40; Status DC Albuterol/ Ipratropium (Duoneb) 6 ml 1X ONCE NEB Last administered on 20:09; Start 04/07/16 at 19:45; Stop 04/07/16 at 19:51; Status DC Methylprednisolone Sodium Succinate (Solu-Medrol 125mg Vial) 100 mg 1X ONCE IV Last administered on 04/07/16 20:09; Start 04/07/16 at 19:45; Stop 04/07/16 at 19:51; Status DC Levofloxacin/ Dextrose (Levaquin Per Pharmacy) 1 each PRN DAILY PRN [facility] SEE COMMENTS; Start 04/08/16 at 00:15 Albuterol/ Ipratropium (Duoneb) 3 ml RTQID NEB Last administered on 04/10/16 11 :42; Start 04/08/16 at 08:00; Stop 04/10/16 at 13:25; Status DC Methylprednisolone Sodium Succinate 30 mg 30 mg TID IV Last administered on 08:50; Start 04/08/16 at 09:00 Levofloxacin/ Dextrose 100 ml @ 100 mls/hr 1X ONCE IV Last administered on 04:25; Start 04/08/16 at 00:30; Stop 04/08/16 at 01:29; Status DC Levofloxacin/ Dextrose (LEVAQUIN 250mg PREMIX) 50 ml @ 50 mls/hr Q24H IV Last administered on 04/10/16 22:05; Start 04/08/16 at 22:00 Acetaminophen (Tylenol) 325 mg PRN Q6HRS PRN PO MILD PAIN / TEMP Last administered on 04/08/16 21:15; Start 04/08/16 at 09:30 Acetaminophen/ Hydrocodone Bitart (Lortab 5/325) 1 tab PRN Q6HRS PRN PO MODERATE TO SEVERE PAIN Last administered on 04/11/16 08:50; Start 04/08/16 at 09:30 Hydralazine HCl (Apresoline) 10 mg PRN Q4HRS PRN IVP ELEVATED BP, SEE COMMENTS ; Start 04/08/16 at 09:30 Ondansetron HCl (Zofran) 4 mg PRN Q8HRS PRN IV NAUSEA/VOMITING; Start 04/08/16 at 09:30 Albuterol Sulfate (Ventolin Neb Soln) 2.5 mg PRN Q4HRS PRN NEB SHORTNESS OF BREATH; Start 04/08/16 at 09:30 Meclizine HCl (Antivert) 12.5 mg PRN Q6HRS PRN PO DIZZINESS Last administered on 04/09/16 12:05; Start 04/09/16 at 11:00 Albuterol/ Ipratropium (Duoneb) 3 ml Q4HRS W/A NEB Last administered on 12:04; Start 04/10/16 at 14:00 Docusate Sodium (Colace Solution) 100 mg BID Last administered on 04/11/16 08:49; Start 04/10/16 at 21:00 Enoxaparin Sodium (Lovenox Per Pharmacy Prophylaxis Dosing) 1 each PRN DAILY PRN [facility] SEE COMMENTS; Start 04/10/16 at 13:30 Enoxaparin Sodium (Lovenox 40mg Syringe) 40 mg DAILY16 SQ ; Start 04/10/16 at 16: 00 Vitals/I & O Vital Sign - Last 24 Hours 04/10/16 04/10/16 04/10/16 04/10/16 14:11 15:00 15:48 19:00 Temp 97.7 98.4 97.7 98.4 Pulse 79 82 Resp 19 18 B/P 114/80 122/73 Pulse Ox 91 95 96 O2 Delivery Room Air Room Air Room Air Room Air 04/10/16 04/10/16 04/10/16 04/11/16 19:39 20:00 23:00 03:00 Temp 98.3 98.2 98.3 98.2 Pulse 91 88 Resp 18 18 B/P 121/79 126/85 Pulse Ox 97 93 95 O2 Delivery Room Air Nasal Cannula Room Air Room Air O2 Flow Rate 1.0 04/11/16 04/11/16 04/11/16 04/11/16 07:00 07:35 08:45 08:50 Temp 97.5 97.5 Pulse 68 Resp 16 B/P 133/90 Pulse Ox 93 92 O2 Delivery Room Air Room Air Room Air Room Air 04/11/16 04/11/16 04/11/16 10:02 11:00 12:04 Temp 97.5 97.5 Pulse 78 Resp 16 B/P 115/81 Pulse Ox 96 O2 Delivery Room Air Room Air Room Air Intake and Output 04/10/16 04/10/16 04/11/16 15:00 23:00 07:00 Intake Total 120 ml 550 ml Balance 120 ml 550 ml DONA KING MD Apr 11, 2016 13:18
[2016-04-11 15:00] VITALS: BP 121/70
[2016-04-11] MEDS ORDERED: VENTOLIN HFA18 GM INH (15:04)
[2016-04-11] MEDS ORDERED: MECL12.52 PO (15:04)
--- NOTE | 2016-04-11 15:33 | PDOC ---
PULMONARY PROGRESS NOTES Subjective had CP today, no SOA Vitals Vital Signs Date Time Temp Pulse Resp B/P Pulse Ox O2 Delivery O2 Flow Rate FiO2 04/11/16 12:04 Room Air 04/11/16 11:00 97.5 78 16 115/81 96 97.5 04/10/16 20:00 1.0 General: Alert, No acute distress Lungs: Other (decrease bs) Cardiovascular: S1, S2 Abdomen: Soft, Non-tender Extremities: No Edema Skin: Warm Labs Laboratory Tests Test 04/10/16 04:15 04/11/16 06:00 04/11/16 14:25 White Blood Count 23.0x10^3/uL (4.0-11.0) 17.8x10^3/uL (4.0-11.0) Red Blood Count 4.03x10^6/uL (3.50-5.40) 3.96x10^6/uL (3.50-5.40) Hemoglobin 11.9g/dL (12.0-15.5) 11.6g/dL (12.0-15.5) Hematocrit 35.7% (36.0-47.0) 35.1% (36.0-47.0) Mean Corpuscular Volume 89fL (79-100) 89fL (79-100) Mean Corpuscular Hemoglobin 30pg (25-35) 29pg (25-35) Mean Corpuscular Hemoglobin Concent 33g/dL (31-37) 33g/dL (31-37) Red Cell Distribution Width 13.5% (11.5-14.5) 13.3% (11.5-14.5) Platelet Count 186x10^3/uL (140-400) 202x10^3/uL (140-400) Neutrophils (%) (Auto) 95% (31-73) 90% (31-73) Lymphocytes (%) (Auto) 3% (24-48) 5% (24-48) Monocytes (%) (Auto) 2% (0-9) 4% (0-9) Eosinophils (%) (Auto) 0% (0-3) 0% (0-3) Basophils (%) (Auto) 0% (0-3) 0% (0-3) Neutrophils # (Auto) 21.9x10^3uL (1.8-7.7) 16.1x10^3uL (1.8-7.7) Lymphocytes # (Auto) 0.6x10^3/uL (1.0-4.8) 0.9x10^3/uL (1.0-4.8) Monocytes # (Auto) 0.5x10^3/uL (0.0-1.1) 0.8x10^3/uL (0.0-1.1) Eosinophils # (Auto) 0.0x10^3/uL (0.0-0.7) 0.0x10^3/uL (0.0-0.7) Basophils # (Auto) 0.0x10^3/uL (0.0-0.2) 0.0x10^3/uL (0.0-0.2) Sodium Level 141mmol/L (136-145) 141mmol/L (136-145) Potassium Level 3.9mmol/L (3.5-5.1) 4.1mmol/L (3.5-5.1) Chloride Level 102mmol/L (98-107) 103mmol/L (98-107) Carbon Dioxide Level 35mmol/L (21-32) 35mmol/L (21-32) Anion Gap 4 (6-14) 3 (6-14) Blood Urea Nitrogen 18mg/dL (7-20) 16mg/dL (7-20) Creatinine 0.6mg/dL (0.6-1.0) 0.5mg/dL (0.6-1.0) Estimated GFR (Cockcroft-Gault) 121.4 149.8 Glucose Level 113mg/dL (70-99) 112mg/dL (70-99) Calcium Level 8.9mg/dL (8.5-10.1) 9.4mg/dL (8.5-10.1) Troponin I Quantitative < 0.017ng/mL (0.000-0.055) Laboratory Tests Test 04/11/16 06:00 04/11/16 14:25 White Blood Count 17.8x10^3/uL (4.0-11.0) Red Blood Count 3.96x10^6/uL (3.50-5.40) Hemoglobin 11.6g/dL (12.0-15.5) Hematocrit 35.1% (36.0-47.0) Mean Corpuscular Volume 89fL (79-100) Mean Corpuscular Hemoglobin 29pg (25-35) Mean Corpuscular Hemoglobin Concent 33g/dL (31-37) Red Cell Distribution Width 13.3% (11.5-14.5) Platelet Count 202x10^3/uL (140-400) Neutrophils (%) (Auto) 90% (31-73) Lymphocytes (%) (Auto) 5% (24-48) Monocytes (%) (Auto) 4% (0-9) Eosinophils (%) (Auto) 0% (0-3) Basophils (%) (Auto) 0% (0-3) Neutrophils # (Auto) 16.1x10^3uL (1.8-7.7) Lymphocytes # (Auto) 0.9x10^3/uL (1.0-4.8) Monocytes # (Auto) 0.8x10^3/uL (0.0-1.1) Eosinophils # (Auto) 0.0x10^3/uL (0.0-0.7) Basophils # (Auto) 0.0x10^3/uL (0.0-0.2) Sodium Level 141mmol/L (136-145) Potassium Level 4.1mmol/L (3.5-5.1) Chloride Level 103mmol/L (98-107) Carbon Dioxide Level 35mmol/L (21-32) Anion Gap 3 (6-14) Blood Urea Nitrogen 16mg/dL (7-20) Creatinine 0.5mg/dL (0.6-1.0) Estimated GFR (Cockcroft-Gault) 149.8 Glucose Level 112mg/dL (70-99) Calcium Level 9.4mg/dL (8.5-10.1) Troponin I Quantitative < 0.017ng/mL (0.000-0.055) Impression . 1. Dyspnea with acute hypoxic respiratory failure secondary to acute exacerbation of chronic obstructive pulmonary disease and possible viral pneumonitis. 2. Abnormal chest x-ray with slightly prominent interstitial markings. viral syndrome 3. Ongoing tobaccoism. 4. CP today, follow cardiology rec Plan . 1. Continue present oxygen. 2. Bronchodilators. 3. Levaquin. 4. steroids.with taper 5. CT chest without contrast reviewed/ emphysema 6. echocardiogram. reviewed 7. will likely need oxygen . will need 6 min walk EVERTON CUNNINGHAM MD Apr 11, 2016 15:33
--- NOTE | 2016-04-11 16:00 | PDOC2 ---
ROCKY BASURTO AUTO JOB ESTIMATOR 04/11/16 1600: CARDIAC CONSULT DATE OF CONSULT Date of Consult DATE: 04/11/16 TIME: 15:51 REASON FOR CONSULT Reason for Consult: Chest pain REFERRING PHYSICIAN Referring Physician: Temitope SOURCE Source: Chart review, Patient HISTORY OF PRESENT ILLNESS HISTORY OF PRESENT ILLNESS This is a 65 yo female admitted initially for nonproductive cough and SOA. She has known COPD and has been evaluated by pulmonary and is currently much improved. Today she started having chest discomfort which was described as few minutes and was burning. Denies any associated nausea, diaphoresis, palpitations. Denies any past CAD, VTE. No recent falls or injury PAST MEDICAL HISTORY Cardiovascular: HTN Pulmonary: COPD CENTRAL NERVOUS SYSTEM: Other (No pertinent history) GI: No pertinent hx Heme/Onc: No pertinent hx Hepatobiliary: No pertinent hx Psych: No pertinent hx Musculoskeletal: Osteoarthritis Rheumatologic: No pertinent hx Infectious disease: No pertinent hx ENT: No pertinent hx Renal/: No pertinent hx Endocrine: No pertinent hx Dermatology: No pertinent hx PAST SURGICAL HISTORY Past Surgical History: No pertinent history FAMILY HISTORY Family History: Coronary Artery Disease SOCIAL HISTORY Smoke: <1 pack per day ALCOHOL: none Drugs: None Lives: with Family CURRENT MEDICATIONS CURRENT MEDICATIONS Current Medications Medications (Trade) Dose Ordered Sig/Natalie Route PRN Reason Start Time Stop Time Status Last Admin Dose Admin Docusate Sodium (Colace Solution) 100 mg BID 04/10/16 21:00 04/11/16 08:49 ALLERGIES ALLERGIES: Coded Allergies: Penicillins (Verified Allergy, Intermediate, hives, 11/03/13) diphenhydramine (Verified Allergy, Intermediate, hives, 11/03/13) ROS Review of System 14 point ROS evaluated with pertinent positives noted per HPI PHYSICAL EXAM General: Alert, Oriented X3, Cooperative, No acute distress HEENT: Atraumatic, Mucous membr. moist/pink Lungs: Other (faint diufuse wheeze) Heart: Regular rate, Normal S1, Normal S2, Other (2/6 systolic murmur to LLS border) Abdomen: Soft, No tenderness Extremities: No cyanosis, No edema Skin: No breakdown, No significant lesion Neuro: Normal speech, Sensation intact Psych/Mental Status: Mental status NL, Mood NL MUSCULOSKELETAL: Osteoarthritic changes both hands VITALS VITALS Vital Signs Date Time Temp Pulse Resp B/P Pulse Ox O2 Delivery O2 Flow Rate FiO2 2/10/17 15:00 97.9 103 16 121/70 94 Room Air 97.9 04/10/16 20:00 1.0 LABS Lab: Laboratory Tests Test 04/11/16 06:00 04/11/16 14:25 White Blood Count 17.8x10^3/uL (4.0-11.0) Red Blood Count 3.96x10^6/uL (3.50-5.40) Hemoglobin 11.6g/dL (12.0-15.5) Hematocrit 35.1% (36.0-47.0) Mean Corpuscular Volume 89fL (79-100) Mean Corpuscular Hemoglobin 29pg (25-35) Mean Corpuscular Hemoglobin Concent 33g/dL (31-37) Red Cell Distribution Width 13.3% (11.5-14.5) Platelet Count 202x10^3/uL (140-400) Neutrophils (%) (Auto) 90% (31-73) Lymphocytes (%) (Auto) 5% (24-48) Monocytes (%) (Auto) 4% (0-9) Eosinophils (%) (Auto) 0% (0-3) Basophils (%) (Auto) 0% (0-3) Neutrophils # (Auto) 16.1x10^3uL (1.8-7.7) Lymphocytes # (Auto) 0.9x10^3/uL (1.0-4.8) Monocytes # (Auto) 0.8x10^3/uL (0.0-1.1) Eosinophils # (Auto) 0.0x10^3/uL (0.0-0.7) Basophils # (Auto) 0.0x10^3/uL (0.0-0.2) Sodium Level 141mmol/L (136-145) Potassium Level 4.1mmol/L (3.5-5.1) Chloride Level 103mmol/L (98-107) Carbon Dioxide Level 35mmol/L (21-32) Anion Gap 3 (6-14) Blood Urea Nitrogen 16mg/dL (7-20) Creatinine 0.5mg/dL (0.6-1.0) Estimated GFR (Cockcroft-Gault) 149.8 Glucose Level 112mg/dL (70-99) Calcium Level 9.4mg/dL (8.5-10.1) Troponin I Quantitative < 0.017ng/mL (0.000-0.055) ECHOCARDIOGRAM ECHOCARDIOGRAM <Conclusion> The left ventricular systolic function is normal and the ejection fraction is within normal range. The Ejection Fraction is 70%. Transmitral Doppler flow pattern is Grade I-abnormal relaxation pattern. The right ventricle is mildly dilated The left atrium size is normal. The right atrium size is normal. The aortic valve is normal in structure and function. The mitral valve is normal in structure and function. Doppler and Color Flow revealed mild tricuspid regurgitation. The pulmonary artery systolic pressure is estimated at 31 mmHg. The pulmonary valve is normal in structure and function. There is no evidence of significant pericardial effusion. DATE: 04/08/161858 ASSESSMENT/PLAN ASSESSMENT/PLAN 1. Atypical chest pain: Burning in sensation. BP controlled. TTE with normal EF and wall motion Doubt ACS. likely GI 2. AECOPD with possible viral pneumonitis: much improved 3. Continued Tobaccoism 4. HLP 5. Noncompliance: has not been using any inhalers. Recommendation 1. Troponin normal, EKG SR without acute changes with last one on 04/07. Repeat EKG 2. lipid panel 3. smoking cessation 4. Recommend start of ECASA 81 mg for primary prevention 5. Start PPI, mylanta PRN Problems: ARISTIDES YOON MD 04/11/16 2006: CARDIAC CONSULT ALLERGIES ALLERGIES: Coded Allergies: Penicillins (Verified Allergy, Intermediate, hives, 11/03/13) diphenhydramine (Verified Allergy, Intermediate, hives, 11/03/13) ASSESSMENT/PLAN ASSESSMENT/PLAN Patient seen and examined. Agree with above nurse practitioner note. 65-year-old woman presenting with pulmonary issues which have not resolved. She had some atypical chest pain which was likely related to some gastroesophageal reflux disease. No further cardiac testing necessary at this time. She has normal physical examination. Supportive care from a cardiac perspective. Okay to discharge and follow up on an outpatient basis as necessary from a cardiac perspective. Problems: ROCKY BASURTO APRN Apr 11, 2016 16:00 ARISTIDES YOON MD Apr 11, 2016 20:06
[2016-04-11] MEDS ORDERED: MAG HYDROX/ALUMINUM HYDROX/SMC 30 ML ORAL.SUSP PO PRN (16:45)
[2016-04-11 17:20] LABS: CHOLESTEROL/HDL RATIO 1.5
[2016-04-11] MEDS: ENOXAPARIN 40 MG/0.4 ML DISP.SYRIN. SQ SCH (18:21)
[2016-04-11] MEDS: PANTOPRAZOLE 40 MG TABLET. PO SCH (18:25)
--- NOTE | 2016-04-11 18:40 | EKG ---
[facility] [address] [place] [address] Test Date: 2016-04-11 Test Time: 17:45:44 Pat Name: SHERRILL LOWERY Department: Room: [facility] Gender: F Trial Consultant: NAKIA : 1950 Requested By: ROCKY BASURTO Order Number: [id number] Reading MD: Measurements Intervals [place] Rate: 88 P: 90 VA: 134 QRS: 82 QRSD: 92 T: 64 QT: 330 QTc: 402 Interpretive Statements SINUS RHYTHM OTHERWISE NORMAL ECG RI6.01 Unconfirmed report Compared to ECG 01/05/2015 18:28:51 No significant changes
[2016-04-11 19:59] VITALS: BP 134/87
[2016-04-11 22:40] VITALS: BP 141/79
[2016-04-12 03:59] VITALS: BP 145/94
[2016-04-12] MEDS: IPRATRPIUM/ALBUTEROL 0.5/2.5MG 3 ML NEBU. NEB SCH ×2 (05:52→11:45)
[2016-04-12] MEDS: PANTOPRAZOLE 40 MG TABLET. PO SCH (06:45)
[2016-04-12 07:00] VITALS: BP 141/87
[2016-04-12 07:19] LABS: CALCIUM 9.1 mg/dL (8.5-10.1); CREATININE 0.5 mg/dL (0.6-1.0); GFR 149.8
[2016-04-12 07:20] LABS: BASO # 0.1 x10^3/uL (0.0-0.2); BASO % 0 % (0-3); EOS % 0 % (0-3); HEMATOCRIT 34.4 % (36.0-47.0); HEMOGLOBIN 11.4 g/dL (12.0-15.5); LYMPH # 0.5 x10^3/uL (1.0-4.8); LYMPH % 3 % (24-48); MEAN CORPUSCULAR HEMOGLOBIN 30 pg (25-35); MEAN CORPUSCULAR HGB CONC 33 g/dL (31-37); MEAN CORPUSCULAR VOLUME 89 fL (79-100); MONO % 15 % (0-9); NEUT % 81 % (31-73); PLATELET COUNT 213 x10^3/uL (140-400); RED BLOOD COUNT 3.86 x10^6/uL (3.50-5.40); RED CELL DISTRIBUTION WIDTH 13.5 % (11.5-14.5); WHITE BLOOD COUNT 14.4 x10^3/uL (4.0-11.0)
--- NOTE | 2016-04-12 08:15 | PDOC ---
PULMONARY PROGRESS NOTES Subjective sob, cough, better. no pain, no runny nose. Vitals Vital Signs Date Time Temp Pulse Resp B/P Pulse Ox O2 Delivery O2 Flow Rate FiO2 04/12/16 05:53 98 Room Air 04/12/16 03:59 98.8 73 18 145/94 98.8 Comments ros as mentioned as above, other sys otherwise neg lymphatics no lap General: Alert, No acute distress Lungs: Other (decrease bs) Cardiovascular: S1, S2 Abdomen: Soft, Non-tender Extremities: No Edema Skin: Warm Labs Laboratory Tests Test 04/11/16 06:00 04/11/16 14:25 04/12/16 06:00 White Blood Count 17.8x10^3/uL (4.0-11.0) 14.4x10^3/uL (4.0-11.0) Red Blood Count 3.96x10^6/uL (3.50-5.40) 3.86x10^6/uL (3.50-5.40) Hemoglobin 11.6g/dL (12.0-15.5) 11.4g/dL (12.0-15.5) Hematocrit 35.1% (36.0-47.0) 34.4% (36.0-47.0) Mean Corpuscular Volume 89fL (79-100) 89fL (79-100) Mean Corpuscular Hemoglobin 29pg (25-35) 30pg (25-35) Mean Corpuscular Hemoglobin Concent 33g/dL (31-37) 33g/dL (31-37) Red Cell Distribution Width 13.3% (11.5-14.5) 13.5% (11.5-14.5) Platelet Count 202x10^3/uL (140-400) 213x10^3/uL (140-400) Neutrophils (%) (Auto) 90% (31-73) 81% (31-73) Lymphocytes (%) (Auto) 5% (24-48) 3% (24-48) Monocytes (%) (Auto) 4% (0-9) 15% (0-9) Eosinophils (%) (Auto) 0% (0-3) 0% (0-3) Basophils (%) (Auto) 0% (0-3) 0% (0-3) Neutrophils # (Auto) 16.1x10^3uL (1.8-7.7) 11.7x10^3uL (1.8-7.7) Lymphocytes # (Auto) 0.9x10^3/uL (1.0-4.8) 0.5x10^3/uL (1.0-4.8) Monocytes # (Auto) 0.8x10^3/uL (0.0-1.1) 2.2x10^3/uL (0.0-1.1) Eosinophils # (Auto) 0.0x10^3/uL (0.0-0.7) 0.0x10^3/uL (0.0-0.7) Basophils # (Auto) 0.0x10^3/uL (0.0-0.2) 0.1x10^3/uL (0.0-0.2) Sodium Level 141mmol/L (136-145) 141mmol/L (136-145) Potassium Level 4.1mmol/L (3.5-5.1) 4.0mmol/L (3.5-5.1) Chloride Level 103mmol/L (98-107) 102mmol/L (98-107) Carbon Dioxide Level 35mmol/L (21-32) 35mmol/L (21-32) Anion Gap 3 (6-14) 4 (6-14) Blood Urea Nitrogen 16mg/dL (7-20) 16mg/dL (7-20) Creatinine 0.5mg/dL (0.6-1.0) 0.5mg/dL (0.6-1.0) Estimated GFR (Cockcroft-Gault) 149.8 149.8 Glucose Level 112mg/dL (70-99) 118mg/dL (70-99) Calcium Level 9.4mg/dL (8.5-10.1) 9.1mg/dL (8.5-10.1) Triglycerides Level 36mg/dL (0-150) Cholesterol Level 130mg/dL (0-200) LDL Cholesterol, Calculated 39mg/dL (0-100) VLDL Cholesterol, Calculated 7mg/dL (0-40) HDL Cholesterol 84mg/dL (40-60) Cholesterol/HDL Ratio 1.5 Troponin I Quantitative < 0.017ng/mL (0.000-0.055) Laboratory Tests Test 04/11/16 14:25 04/12/16 06:00 Troponin I Quantitative < 0.017ng/mL (0.000-0.055) White Blood Count 14.4x10^3/uL (4.0-11.0) Red Blood Count 3.86x10^6/uL (3.50-5.40) Hemoglobin 11.4g/dL (12.0-15.5) Hematocrit 34.4% (36.0-47.0) Mean Corpuscular Volume 89fL (79-100) Mean Corpuscular Hemoglobin 30pg (25-35) Mean Corpuscular Hemoglobin Concent 33g/dL (31-37) Red Cell Distribution Width 13.5% (11.5-14.5) Platelet Count 213x10^3/uL (140-400) Neutrophils (%) (Auto) 81% (31-73) Lymphocytes (%) (Auto) 3% (24-48) Monocytes (%) (Auto) 15% (0-9) Eosinophils (%) (Auto) 0% (0-3) Basophils (%) (Auto) 0% (0-3) Neutrophils # (Auto) 11.7x10^3uL (1.8-7.7) Lymphocytes # (Auto) 0.5x10^3/uL (1.0-4.8) Monocytes # (Auto) 2.2x10^3/uL (0.0-1.1) Eosinophils # (Auto) 0.0x10^3/uL (0.0-0.7) Basophils # (Auto) 0.1x10^3/uL (0.0-0.2) Sodium Level 141mmol/L (136-145) Potassium Level 4.0mmol/L (3.5-5.1) Chloride Level 102mmol/L (98-107) Carbon Dioxide Level 35mmol/L (21-32) Anion Gap 4 (6-14) Blood Urea Nitrogen 16mg/dL (7-20) Creatinine 0.5mg/dL (0.6-1.0) Estimated GFR (Cockcroft-Gault) 149.8 Glucose Level 118mg/dL (70-99) Calcium Level 9.1mg/dL (8.5-10.1) Comments ct reviewed, Underlying emphysematous changes. No acute finding apparent in the chest Impression . 1. Dyspnea with acute hypoxic respiratory failure secondary to acute exacerbation of chronic obstructive pulmonary disease and possible viral pneumonitis. 2. Abnormal chest x-ray with slightly prominent interstitial markings. viral syndrome 3. Ongoing tobaccoism. 4. CP today, follow cardiology rec Plan . 1. Continue present oxygen. 2. Bronchodilators. 3. Levaquin. 4. change solumedrol to prednisone 40 mg daily w taper by 10 mg q 3d.. 5. CT chest without contrast reviewed/ emphysema 6. echocardiogram. reviewed 7. discussed w pt ok to go home from pulm stand point SINA GARCIA MD Apr 12, 2016 08:15
[2016-04-12] MEDS: DOCUSATE 100 MG/10 ML SOLUTION. AS SCH (08:47)
[2016-04-12] MEDS: HYDROCODONE/APAP 5/325MG TABLET. PO PRN (08:50)
[2016-04-12] MEDS ORDERED: PREDNISONE 20 MG TABLET PO SCH (09:00)
[2016-04-12 11:00] VITALS: BP 127/78
--- NOTE | 2016-04-18 01:25 | DS ---
DATE OF DISCHARGE: 04/12/2016 DISCHARGE DIAGNOSES: 1. Chronic obstructive pulmonary disease exacerbation with acute bronchitis. 2. Respiratory failure, hypoxic. 3. Dizziness. 4. Chronic diastolic congestive heart failure. 5. ____. PROCEDURES DURING HOSPITALIZATION: Echocardiogram, LV ejection fraction was 70% with mild elevation of pulmonary artery systolic blood pressure. BRIEF HOSPITAL COURSE: This is a 65-year-old female patient admitted to the hospital for shortness of breath and she was diagnosed with COPD exacerbation. She was treated with IV Solu-Medrol and IV antibiotics. Later, the patient was evaluated by Pulmonology and Cardiology. She had an echocardiogram during the hospitalization, which was negative and also has had 3 sets of troponins, which are negative too. She is deemed to send home in stable condition. Recommend to follow up with her primary care doctor for further workup. DISCHARGE EXAMINATION: GENERAL: Alert, oriented x 3. HEART: S1, S2 present. LUNGS: Anterior chest clear. ABDOMEN: Soft, nontender, no organomegaly. EXTREMITIES: No edema. DISCHARGE DISPOSITION: Home. DISCHARGE CONDITION: Stable. MEDICATIONS: Reviewed and reconciled. Please see MRAD. Total time spent for discharge is 31 minutes for patient education, counseling, and coordination of care. DONA KING MD DR: ELIO/yumiko JOB#: [id number] / [id number]
== END 2016-04-12 16:00 | disposition home or self-care (01) | DRG 871 ==
LOC: ER 18:07 → 4 NORTH 04-08 01:16 → ER 04-08 01:32
PROVIDERS: ADMIT Internal Medicine; ATTEND Internal Medicine
DX: A41.9 Sepsis, unspecified organism (principal); J12.9 Viral pneumonia, unspecified; J96.01 Acute respiratory failure with hypoxia; J44.1 Chronic obstructive pulmonary disease with (acute) exacerbation; I50.32 Chronic diastolic (congestive) heart failure; J44.0 Chronic obstructive pulmonary disease with (acute) lower respiratory infection; E78.5 Hyperlipidemia, unspecified; F17.210 Nicotine dependence, cigarettes, uncomplicated; J45.909 Unspecified asthma, uncomplicated; K21.9 Gastro-esophageal reflux disease without esophagitis; F12.90 Cannabis use, unspecified, uncomplicated; M19.90 Unspecified osteoarthritis, unspecified site; M54.9 Dorsalgia, unspecified; I11.0 Hypertensive heart disease with heart failure; J20.9 Acute bronchitis, unspecified; Z88.0 Allergy status to penicillin; Z88.8 Allergy status to other drugs, medicaments and biological substances; Z82.49 Family history of ischemic heart disease and other diseases of the circulatory system; Z91.19 Patient's noncompliance with other medical treatment and regimen
CPT/HCPCS: 36415; 71010; 71250; 80048; 80053; 80061; 81001; 82553; 83605; 83880; 84484; 85007; 85027; 87040; 87804; 93005; 93306; 94250; 94620; 94640; 94760; 96361; 96374; J1650; J1956; J2920; J2930; J7030; J7512; J7620; J8597; 99285-25